=== PATIENT | male | born 1940 | race Caucasian/White ===

== ENCOUNTER 2016-06-21 15:25 | Emergency (ER) | payer MEDICARE ==
[2015-07-09 16:18] VITALS: BMI 27.6
[~2016-06-21 15:25] MED LIST: ASPIRIN EC81 M1 PO; LISINOPRIL10 MG PO
== END 2016-06-21 21:03 | disposition home or self-care (01) ==
LOC: D.ER 15:25
DX: M54.12 Radiculopathy, cervical region (principal); M19.90 Unspecified osteoarthritis, unspecified site; I10 Essential (primary) hypertension; Z86.73 Personal history of transient ischemic attack (TIA), and cerebral infarction without residual deficits

== ENCOUNTER 2017-05-09 05:20 | Emergency (ER) | payer MEDICARE ==
[2015-07-09 16:18] VITALS: BMI 27.6
[2017-05-09 05:54] LABS: BASOPHILS 0.2 % (0-2); EOSINOPHILS 0.7 % (0-7); HEMOGLOBIN 14.7 g/dL (13.5-17.5); IMMATURE GRANULOCYTES 0.2 % (0-5); LYMPHOCYTES 18.8 % (15-50); MCH 30.9 pg (26.0-34.0); MCHC 33.4 g/dL (31.0-37.0); MCV 92.4 fL (80.0-100.0); MEAN PLATELET VOLUME 9.7 fL (7.4-10.4); MONOCYTES 8.8 % (2-11); NEUTROPHILS 71.3 % (40-80); RBC 4.76 10x6/uL (4.20-6.10); RDW 13.2 % (11.5-14.5); WBC 5.6 10x3/uL (4.8-10.8)
[2017-05-09 05:59] LABS: PLATELET COUNT 135 10x3/uL (130-400)
[2017-05-09 06:11] LABS: ALBUMIN 3.9 g/dL (3.4-5.0); ANION GAP 13.7 mmol/L (8-16); BILIRUBIN - TOTAL 0.6 mg/dL (0.2-1.3); CALCIUM 8.8 mg/dL (8.5-10.1); CREATININE - SERUM 1.2 mg/dL (0.6-1.3); POTASSIUM - SERUM 3.7 mmol/L (3.5-5.1); PROTEIN - SERUM 7.1 g/dL (6.4-8.2)
== END 2017-05-09 06:55 | disposition home or self-care (01) ==
LOC: D.ER 05:20
PROVIDERS: Family Medicine
DX: J11.1 Influenza due to unidentified influenza virus with other respiratory manifestations (principal); I10 Essential (primary) hypertension; Z86.73 Personal history of transient ischemic attack (TIA), and cerebral infarction without residual deficits

== ENCOUNTER 2017-05-29 08:35 | Emergency (ER) | payer MEDICARE ==
[2015-07-09 16:18] VITALS: BMI 27.6
[2017-05-29 09:00] LABS: BASOPHILS 0.1 % (0-2); EOSINOPHILS 0.7 % (0-7); HEMATOCRIT 43.7 % (42.0-54.0); HEMOGLOBIN 14.9 g/dL (13.5-17.5); LYMPHOCYTES 6.7 % (15-50); MCH 31.2 pg (26.0-34.0); MCHC 34.1 g/dL (31.0-37.0); MCV 91.4 fL (80.0-100.0); MEAN PLATELET VOLUME 10.3 fL (7.4-10.4); MONOCYTES 6.6 % (2-11); NEUTROPHILS 85.9 % (40-80); PLATELET COUNT 161 10x3/uL (130-400); RBC 4.78 10x6/uL (4.20-6.10); RDW 13.2 % (11.5-14.5); WBC 7.5 10x3/uL (4.8-10.8)
[2017-05-29 09:15] LABS: ALBUMIN 4.1 g/dL (3.4-5.0); ALKALINE PHOSPHATASE 72 U/L (46-116); ALT (SGPT) 29 U/L (10-68); CALC OSMOLALITY 278 mosm/kg (275-300); CARBON DIOXIDE 27.6 mmol/L (21.0-32.0); CHLORIDE - SERUM 102 mmol/L (98-107); POTASSIUM - SERUM 4.2 mmol/L (3.5-5.1); PROTEIN - SERUM 7.2 g/dL (6.4-8.2); SODIUM 137 mmol/L (136-145); UREA NITROGEN 20 mg/dL (7-18); eGFR NON AFRICAN AMERICAN 77 mL/min (90-120)
[2017-05-29 09:16] LABS: GLUCOSE 143 mg/dL (74-106)
[2017-05-29 09:18] LABS: CREATINE KINASE 125 UL (21-232); TROPONIN-I < 0.017 ng/mL (0.000-0.060)
== END 2017-05-29 10:40 | disposition home or self-care (01) ==
LOC: D.ER 08:35
PROVIDERS: Emergency Medicine
DX: I95.9 Hypotension, unspecified (principal); R55 Syncope and collapse; E86.0 Dehydration; Z86.73 Personal history of transient ischemic attack (TIA), and cerebral infarction without residual deficits

== ENCOUNTER → 2017-09-29 12:59 | Outpatient (CLI) | payer MEDICARE ==
[2015-07-09 16:18] VITALS: BMI 27.6
[~2017-09-29 12:59] MED LIST changes: +LIPITOR40 MG PO; +PLAVIX75 MG PO
== END | disposition home or self-care (01) ==
LOC: D.US 12:59
DX: M19.90 Unspecified osteoarthritis, unspecified site (principal); I49.9 Cardiac arrhythmia, unspecified; I63.9 Cerebral infarction, unspecified; R07.9 Chest pain, unspecified; R00.2 Palpitations; R55 Syncope and collapse; R40.0 Somnolence; R06.83 Snoring; R53.83 Other fatigue

== ENCOUNTER 2017-10-13 06:37 | Outpatient (CLI) | payer MEDICARE ==
[~2017-10-13] VITALS: Ht 177.8 cm; Wt 82.7 kg
--- NOTE | ~2017-10-13 | HEMODYNAMI ---
PATIENT:VIDYA NATONY MEDICAL RECORD: [id number] : 44 LOCATION:[facility] ADMISSION DATE: 10/13/17 Generatedon:10/13/201710:48 Patient name: VIDYA ANTONY Patient #: [id number] SSN: : 1940 Date of study: 10/13/2017 Page: Of Hemodynamic Procedure Report Patient Data Patient Demographics Procedure consent was obtained First Name: VIDYA Gender: Male Last Name: CASSIA : 1940 Middle Initial: C Age: 77 year(s) Patient #: [id number] Race: Unknown Additional ID: [id number] Contact details Address: [address] [place] [address] State: [place] City: [facility] Zip code: [address] Past Medical History Allergies: No known allergies Admission Admission Data Admission Date: 10/13/2017 Admission Time: 6:37 Procedure Procedure Types Cath Procedure Diagnostic Procedure LHC LH w/Coronaries Sedation Charges Moderate Sedation up to 15 minutes PCI Procedure Coronary Stent Coronary Stent Initial Procedure Description Procedure Date Procedure Date: 10/13/2017 Procedure Start Time: 10:23 Procedure End Time: 10:48 Procedure Staff Name Function Jorgito Springer MD Performing Physician Marietta Gale RT Monitor Cody Moya RN Nurse Alpa Ohara RT Scrub Procedure Data Cath Procedure Fluoroscopy Diagnostic fluoroscopy Total fluoroscopy Time: 5.6 time: 5.6 min min Diagnostic fluoroscopy Total fluoroscopy dose: dose: 1666 mGy 1666 mGy Contrast Material Contrast Material Type Amount (ml) Isovue 370 80 Entry Location Entry Primary Successful Side Size Upsize Upsize Entry Closure Morrissey ccessful Closure Location (Fr) 1 (Fr) 2 (Fr) Remarks Device Remarks Radial Right 6 Fr Mechanical artery Short Compression Estimated blood loss: 10 ml Diagnostic catheters Device Type Used For End Catheter Placement DIAGNOSTIC Jon 110cm LV Angiography 5Fr catheter ([id number]) DIAGNOSTIC Jon 110cm Left Coronary 5Fr catheter ([id number]) Angiography DIAGNOSTIC Jon 110cm Right Coronary 5Fr catheter ([id number]) Angiography Procedure Complications No complications Procedure Medications Medication Administration Route Dosage 0.9% NaCl I.V. 100 ml/hr Oxygen etCO2 Nasal cannula 2 l/min Heparin Flush Bag added to field 2 bags (1000units/500ml NS) Lidocaine 2% added to field 20 Radial Cocktail added to field 1 syringe (Verapomil 2mg/Nitro 400mcg/Heparin 1500units) Versed I.V. 1 mg Fentanyl I.V. 50 mcg Radial Cocktail I.A. 1 syringe (Verapomil 2mg/Nitro 400mcg/Heparin 1500units) Angiomax (bolus) I.V. 13 ml Angiomax Drip I.V. drip 30 ml/hr (250mg/50ml NS) (Standard) Angiomax Drip I.V. drip 30 ml/hr (250mg/50ml NS) (Standard) Hemodynamics Rest Heart Rate: 50 (bpm) Pressure Samples Time Site Value (mmHg) Purpose Heart Use Rate(bpm) 10:26 LV 5/-3,3 EDP 112 Gradients Valve Time Site Site Mean SEP/DFP Peak To Heart Use 1 2 (mmHg) (sec/min) Peak Rate (mmHg) (bpm) Aortic 10:26 LV AO 59 Snapshots Pre Cath Intra NCS Post Cath Vital Signs Time Heart Resp SPO2 etCO2 NIBP (mmHg) Rhythm Pain Sedation Rate (ipm) (%) (mmHg) Status Level (bpm) 10:12:08 49 11 97 34.5 112/63(77) NSR 0 (11) 10(A) , No pain 10:16:14 49 19 94 0 114/58(91) NSR 0 (11) 10(A) , No pain 10:20:26 48 19 94 0 119/61(77) NSR 0 (11) 10(A) , No pain 10:24:40 47 12 95 12 103/58(81) NSR 0 (11) 9(A) , No pain 10:28:56 54 19 95 31.5 99/51(76) NSR 0 (11) 10(A) , No pain 10:33:04 51 19 96 12.7 97/51(76) NSR 0 (11) 10(A) , No pain 10:37:22 50 14 96 34.5 108/53(71) NSR 0 (11) 10(A) , No pain 10:41:23 52 12 97 24 102/62(78) NSR 0 (11) 10(A) , No pain 10:45:29 54 11 98 38.3 116/66(100) NSR 0 (11) 10(A) , No pain Medications Time Medication Route Dose Verified Delivered Reason Not es Effectiveness by by 10:12:00 0.9% NaCl I.V. 100 Cody Cody Per physician ml/hr Griffin Moya RN RN 10:12:11 Oxygen etCO2 2 l/min Cody Cody Per physician Nasal Megganigan Griffin cannula RN RN 10:12:22 Heparin Flush added 2 bags Cody Cody used for Bag to Lorigan Griffin procedure (1000units/500ml field RN RN NS) 10:12:33 Lidocaine 2% added 20ml Cody Cody for local to vial Lorigan Lorigan anesthetic field RN RN 10:12:43 Radial Cocktail added 1 Cody Cody used for (Verapomil to syringe Lorigan Lorigan procedure 2mg/Nitro field RN RN 400mcg/Heparin 1500units) 10:13:51 Versed I.V. 1 mg Cody Cody for sedation Griffin Moya RN RN 10:13:59 Fentanyl I.V. 50 mcg Cody Cody for sedation Griffin Moya RN RN 10:25:24 Radial Cocktail I.A. 1 Cody Jorgito for (Verapomil syringe Griffin Norpedro MD vasodilation 2mg/Nitro RN 400mcg/Heparin 1500units) 10:37:48 Angiomax (bolus) I.V. 13 ml Cody Cody for Lorigan Lorigan anticoagulation RN RN 10:38:00 Angiomax Drip I.V. 30 Cody Cody for (250mg/50ml NS) drip ml/hr Lorigan Lorigan anticoagulation (Standard) RN RN 10:47:30 Angiomax Drip I.V. 30 Cody Cody to sharp's (250mg/50ml NS) drip ml/hr Lorigan Lorigan (Standard) RN head athletic trainer Log Time Note 9:54:20 Time tracking: Regular hours (M-F 7:00 - 5:00) 9:54:23 Plan of Care:Hemodynamics will remain stable., Cardiac rhythm will remain stable., Comfort level will be maintained., Respiratory function will remain adequate., Patient/ family verbilizes understanding of procedure., Procedure tolerated without complication., Recovers from procedure without complications.. 9:54:26 Alpa Ohara RT(R) sent for patient. Start room use. 9:55:53 H&P Date Dictated: 10/11/2017 Within 30 days and on chart., H&P Addendum completed by physician on day of procedure. (MUST COMPLETE FOR ALL OUTPATIENTS). 10:00:06 Patient received from Pre/Post Procedure Room to CCL 2 Alert and oriented. Tansferred to table in Supine position. 10:00:07 Warm blankets applied, and sherita hugger turned on for patient comfort. 10:00:08 Correct patient and procedure confirmed by team. 10:00:09 Signed procedure consent form obtained from patient. 10:00:09 ECG and BP/O2 sat monitors applied to patient. 10:00:10 Full Disclosure recording started 10:11:02 Vital chart was started 10:11:08 Rhythm: sinus bradycardia 10:11:11 Pre-procedure instructions explained to patient. 10:11:11 Pre-op teaching completed and patient verbalized understanding. 10:11:14 Family in patients room. 10:11:15 Patient NPO since Midnight. 10:11:27 Patient allergic to No known allergies 10:11:29 Is the patient allergic to Iodine/contrast media? No. 10:11:31 Is patient on blood thinner?Yes 10:11:33 ACC The patient was administered the following blood thiners within the last 24 hours: ACCAspirin, ACCPlavix 10:11:35 Patient diabetic? No. 10:11:38 Previous problem with sedation/anesthesia? No ? 10:11:39 Snore? Yes 10:11:40 Sleep apnea? No 10:11:41 Deviated septum? No 10:11:42 Opens mouth fully? Yes 10:11:43 Sticks out tongue? Yes 10:11:44 Airway obstruction? No ? 10:11:46 Dentures? No ? 10:11:48 Pre procedure: right dorsailis pedis pulse 2+ Normal; easily identifiable; not easily obliterated 10:11:50 Modified Dashawn's test Ulnar < 7 seconds 10:11:52 Patient pain scale 0/10 ?. 10:11:56 IV patent on arrival in left forearm with 0.9% NaCl at [facility]. 10:11:58 Lab results completed and on chart. 10:12:00 0.9% NaCl 100 ml/hr I.V. was administered by Cody Moya RN; Per physician; 10:12:02 Right Radial & Right Groin area was prepped with chlora-prep and draped in sterile fashion 10:12:03 Alarms reviewed by R. N. 10:12:03 Sharps counted by scrub and verified by R.N. 10:12:06 Use device set Radial Dx or PCI 10:12:07 ACIST Syringe (12247) opened to sterile field. 10:12:07 Medline Cath Pack ([id number]) opened to sterile field. 10:12:07 Bag Decanter (2002S) opened to sterile field. 10:12:08 DIAGNOSTIC WIRE .035 260cm J wire (987240) opened to sterile field. 10:12:08 ACIST Hand Control (05809) opened to sterile field. 10:12:09 ACIST Manifold (86071) opened to sterile field. 10:12:09 Tegaderm 4 x 4 (1626W) opened to sterile field. 10:12:10 MBrace Wrist Support ([id number]) opened to sterile field. 10:12:11 Oxygen 2 l/min etCO2 Nasal cannula was administered by Cdoy Moya RN; Per physician; 10:12:13 SHEATH 6Fr Prelude Radial ([id number]) opened to sterile field. 10:12:22 Heparin Flush Bag (1000units/500ml NS) 2 bags added to field was administered by Cody Moya RN; used for procedure; 10:12:33 Lidocaine 2% 20ml vial added to field was administered by Cody Moya RN; for local anesthetic; 10:12:43 Radial Cocktail (Verapomil 2mg/Nitro 400mcg/Heparin 1500units) 1 syringe added to field was administered by Cody Moya RN; used for procedure; 10:13:18 Final Timeout: patient, procedure, and site verified with staff and physician. All members of the team are in agreement. 10:13:20 Right Radial site verified by team. 10:13:22 Physical assessment completed. ASA score P 2 - A patient with mild systemic disease as per Jorgito Springer MD. 10:13:26 Sedation plan: IV Moderate Sedation Medication:Versed, Fentanyl 10::51 Versed 1 mg I.V. was administered by Cody Moya RN; for sedation; 10::59 Fentanyl 50 mcg I.V. was administered by Cody Moya RN; for sedation; 10:15:00 Zero performed for pressure channel P1 10:15:09 Baseline sample Acquired. 10:23:43 Procedure started. 10:23:48 Local anesthetic to right radial artery with Lidocaine 2% by Jorgito Springer MD.INITIAL ACCESS ONLY 10:25:13 A 6 Fr Short sheath was inserted into the Right Radial artery 10:25:24 Radial Cocktail (Verapomil 2mg/Nitro 400mcg/Heparin 1500units) 1 syringe I.A. was administered by Jorgito Springer MD; for vasodilation; 10:26:49 A DIAGNOSTIC Jon 110cm 5Fr catheter (287866) was advanced over the wire and used for LV Angiography. 10:26:53 LV gram done using KONG 10::54 LV hemodynamics recorded. 10::57 Injector settings: Ml/sec: 12, Volume: 8, 10:26:58 Catheter removed. 10:27:24 A DIAGNOSTIC Jon 110cm 5Fr catheter (147731) was advanced over the wire and used for Left Coronary Angiography. 10:27:59 A DIAGNOSTIC Jon 110cm 5Fr catheter (708258) was advanced over the wire and used for Right Coronary Angiography. 10:30:38 Catheter removed. 10:30:46 Use device set NORRED PCI 10:30:53 COPILOT Valve Control (3714261) opened to sterile field. 10:30:54 INFLATOR Merit BasixCompak (ZE6996) opened to sterile field. 10:30:56 BMW 190cm [place] 2 J wire ([id number]) opened to sterile field. 10:31:00 GUIDE 6FR EBU 3.5 catheter ([id number]) opened to sterile field. 10:31:20 Proceeding to intervention. 10:35:47 6 Fr EBU 3.5 guide catheter was inserted over the wire 10:37:48 Angiomax (bolus) 13 ml I.V. was administered by Cody Lorigan RN; for anticoagulation; 10:37:49 BMW wire advanced. 10:38:00 Angiomax Drip (250mg/50ml NS) (Standard) 30 ml/hr I.V. drip was administered by Cody Moya RN; for anticoagulation; 10:43:31 Place stent Inflation Number: 1 A NABOR RX 2.0 x 15 stent ([id number]) was prepped and advanced across the 1st Diag. The stent was deployed at 13 JOHNSON for 0:17 (min:sec). 10:44:24 Stent catheter was removed intact over wire. 10:44:26 Wire removed. 10:44:42 Guide catheter removed. 10:44:54 Sheath removed intact; hemostasis achieved with Mechanical Compression to the Right Radial artery. 10:44:57 Procedure ended.(Physican Out) 10:45:24 Fluoroscopy time 05.60 minutes. 10:45:28 Flurop Dose total: 1666 10:45:28 Fluoroscopy dose: 1666 mGy 10:45:32 Contrast amount:Isovue 370 80ml. 10:45:33 Sharps counted by scrub and verified by R.N. 10:45:34 Insertion/operative site no bleeding no hematoma. 10:45:42 Post right radial artery:stable, clean and dry 10:45:43 Post Procedure Pulses reassessed and unchanged 10:45:45 Post-procedure physical assessment completed. ASA score P 2 - A patient with mild systemic disease as per Jorgito Springer MD. 10:45:47 Post procedure rhythm: unchanged. 10:45:51 Estimated blood loss: 10 ml 10:45:52 Post procedure instruction explained to patient.Patient verbalizes understanding. 10:45:52 Patient needs reinforcement of post procedure teaching. 10:46:40 Procedure type changed to Cath procedure, Diagnostic procedure, LHC, LHC w/Coronaries, Sedation Charges, Moderate Sedation up to 15 minutes, PCI procedure, Coronary Stent, Coronary Stent Initial 10:46:49 TR BAND Standard ([id number]) opened to sterile field. 10:47:30 Angiomax Drip (250mg/50ml NS) (Standard) 30 ml/hr I.V. drip was administered by Cody Moya RN; to sharp's; 10:48:11 Procedure Complication : No complications 10:48:14 See physician's report for complete and final results. 10:48:17 Procedure and supply charges have been captured, reviewed, submitted and are correct. 10:48:18 Vital chart was stopped 10:48:20 Report given to Pre/Post Procedure Room. 10:48:24 Patient transfered to Pre/Post Procedure Room with Stretcher. 10:48:32 Procedure ended. 10:48:32 Full Disclosure recording stopped 10:48:37 End room use (Document Last) Intervention Summary Intervention Notes Time ActionType Lesion and Equipment Used Action# Pressure Duration Attributes 10:43:31 Place stent 1st Diag NABOR RX 2.0 x 1 13 00:17 15 stent ([id number]) Device Usage Item Name Manufacture Quantity Catalog Number Hospital Part Current Minimal Lot# / Charge Number Stock Stock Serial# Code ACIST Syringe Acist 1 51923 921887 802692 044329 20 (48053) Medical Systems Inc Medline Cath Cardinal 1 [id number] 615642 88352 090073 5 Urvew ([id number]) Bag Decanter Microtek 1 2001S 129338 24745 109718 5 (2001S) Medical Inc. DIAGNOSTIC WIRE St Zane 1 804825 146257 773845 362536 30 .035 260cm J wire (283962) ACIST Hand Acist 1 46640 004814 554001 305245 5 Control (81239) [employer] Inc ACIST Manifold Acist 1 40128 462493 949908 242818 5 (38522) Medical Systems Inc Tegaderm 4 x 4 3M 1 1626W 644822 453759 107962 5 (1626W) MBrace Wrist Advanced 1 140-0250-00 600018 25309 950443 5 Support Vascular ([id number]) Dynamics SHEATH 6Fr Merit 1 [id number] 910190 853415 292445 5 Prelude Radial Medical ([id number]) DIAGNOSTIC Terumo 1 40-3774 549624 861265 885321 5 Jon 110cm 5Fr catheter (771323) COPILOT Valve Singh 1 1071162 722021 916609 909907 5 Control Vascular (1561077) INFLATOR Merit Merit 1 RF3190 408576 313772 037017 15 BasixCompak Medical (UM7402) BMW 190cm Singh 1 [id number] 689389 60185 345277 5 [place] 2 J Vascular wire ([id number]) GUIDE 6FR EBU Medtronic 1 [id number] 286191 84913 768886 3 3.5 catheter ([id number]) NABOR RX 2.0 x Medtronic 1 [id number] 604335 2652920 375730 5 [id number] 15 stent ([id number]) TR BAND Terumo 1 [id number] 330616 656883 178769 40 Standard ([id number]) Signature Audit [place] Stage Time Signature Unsigned Intra-Procedure 10/13/2017 [place] 10:48:50 AM Counts RT(R) Signatures Monitor : Marietta Signature : Counts RT Date : Time : [place] [id number] [place] [address]
[~2017-10-13 06:37] MED LIST changes: -LIPITOR40 MG PO; -PLAVIX75 MG PO
[2017-10-13 07:24] VITALS: BP 144/87; Ht 177.8 cm; Wt 82.7 kg
[2017-10-13 07:34] LABS: BASOPHILS 0.6 % (0-2); EOSINOPHILS 6.9 % (0-7); HEMATOCRIT 43.8 % (42.0-54.0); HEMOGLOBIN 14.9 g/dL (13.5-17.5); LYMPHOCYTES 38.9 % (15-50); MCH 31.3 pg (26.0-34.0); MONOCYTES 10.4 % (2-11); NEUTROPHILS 43.2 % (40-80); PLATELET COUNT 168 10x3/uL (130-400); RBC 4.76 10x6/uL (4.20-6.10); RDW 13.5 % (11.5-14.5); WBC 4.8 10x3/uL (4.8-10.8)
[2017-10-13 07:42] LABS: CALC OSMOLALITY 286 mosm/kg (275-300); CALCIUM 8.7 mg/dL (8.5-10.1); CARBON DIOXIDE 28.8 mmol/L (21.0-32.0); CHLORIDE - SERUM 106 mmol/L (98-107); CREATININE - SERUM 0.8 mg/dL (0.6-1.3); GLUCOSE 109 mg/dL (74-106); POTASSIUM - SERUM 3.8 mmol/L (3.5-5.1); SODIUM 143 mmol/L (136-145); UREA NITROGEN 16 mg/dL (7-18); eGFR NON AFRICAN AMERICAN > 90 mL/min (90-120)
[2017-10-13] MEDS ORDERED: PLAVIX75 MG PO (10:56)
[2017-10-13] MEDS ORDERED: LIPITOR40 MG PO (10:57)
== END 2017-10-13 15:00 | disposition home or self-care (01) ==
LOC: D.CATH 06:37
PROVIDERS: Internal Medicine Cardiovascular Disease
DX: I25.119 Atherosclerotic heart disease of native coronary artery with unspecified angina pectoris (principal); Z01.812 Encounter for preprocedural laboratory examination
CPT/HCPCS: 93458; C9600

== ENCOUNTER → 2017-11-01 17:47 | Outpatient (CLI) | payer MEDICARE ==
[2017-10-13 07:24] VITALS: BMI 26.1
[~2017-11-01 17:47] MED LIST changes: +LIPITOR40 MG PO; +PLAVIX75 MG PO
[2017-11-01 18:56] LABS: CHOL - HDL RATIO 3.7 ratio (2.3-4.9); LDL-HDL RATIO 2.2 ratio (1.5-3.5)
== END | disposition home or self-care (01) ==
LOC: D.LABREF 17:47
PROVIDERS: Internal Medicine Cardiovascular Disease
DX: E78.5 Hyperlipidemia, unspecified (principal)

== ENCOUNTER → 2017-12-26 18:19 | Outpatient (CLI) | payer MEDICARE ==
[2017-10-13 07:24] VITALS: BMI 26.1
[2017-12-26 18:34] LABS: BASOPHILS 0.3 % (0-2); EOSINOPHILS 5.9 % (0-7); HEMATOCRIT 45.2 % (42.0-54.0); HEMOGLOBIN 15.3 g/dL (13.5-17.5); IMMATURE GRANULOCYTES 0.2 % (0-5); LYMPHOCYTES 32.4 % (15-50); MCH 31.2 pg (26.0-34.0); MCHC 33.8 g/dL (31.0-37.0); MCV 92.1 fL (80.0-100.0); MEAN PLATELET VOLUME 10.5 fL (7.4-10.4); NEUTROPHILS 50.2 % (40-80); PLATELET COUNT 185 10x3/uL (130-400); RBC 4.91 10x6/uL (4.20-6.10); RDW 13.1 % (11.5-14.5); WBC 5.9 10x3/uL (4.8-10.8)
[2017-12-26 19:33] LABS: ERYTHROCYTE SEDIMENTATION RATE 2 mm/hr (0-20)
[2017-12-26 20:22] LABS: ALBUMIN 4.1 g/dL (3.4-5.0); ALKALINE PHOSPHATASE 69 U/L (46-116); ALT (SGPT) 70 U/L (10-68); BILIRUBIN - TOTAL 0.66 mg/dL (0.2-1.3); CALC OSMOLALITY 285 mosm/kg (275-300); CARBON DIOXIDE 29.7 mmol/L (21.0-32.0); CHLORIDE - SERUM 104 mmol/L (98-107); CREATINE KINASE 146 UL (21-232); CREATININE - SERUM 0.9 mg/dL (0.6-1.3); GLUCOSE 131 mg/dL (74-106); POTASSIUM - SERUM 4.6 mmol/L (3.5-5.1); PROTEIN - SERUM 7.2 g/dL (6.4-8.2); SODIUM 142 mmol/L (136-145); UREA NITROGEN 16 mg/dL (7-18); eGFR NON AFRICAN AMERICAN 87 mL/min (90-120)
== END | disposition home or self-care (01) ==
LOC: D.LABREF 18:19
PROVIDERS: Internal Medicine Cardiovascular Disease
DX: R53.83 Other fatigue (principal)

== ENCOUNTER → 2018-01-13 09:14 | Outpatient (CLI) | payer MEDICARE ==
[2017-10-13 07:24] VITALS: BMI 26.1
== END | disposition home or self-care (01) ==
LOC: D.RT 09:00
DX: I49.9 Cardiac arrhythmia, unspecified (principal); I50.9 Heart failure, unspecified; I25.10 Atherosclerotic heart disease of native coronary artery without angina pectoris; R06.02 Shortness of breath; R53.83 Other fatigue

== ENCOUNTER 2018-07-23 08:16 | Observation (INO) | payer MEDICARE ==
[2018-07-23] VITALS (8 sets, daily range): BP systolic 99–123; BP diastolic 53–66; Ht 177.8 cm; Wt 87.8 kg
[~2018-07-23] VITALS: Ht 177.8 cm; Wt 87.8 kg
--- NOTE | ~2018-07-23 | HEMODYNAMI ---
PATIENT:VIDYA ANTONY MEDICAL RECORD: [id number] : 44 LOCATION[facility] [id number] ADMISSION DATE: 07/23/18 Generatedon:07/24/201816:26 Patient name: VIDYA ANTONY Patient #: [id number] SSN: : 1940 Date of study: 07/24/2018 Page: Of Hemodynamic Procedure Report Patient Data Patient Demographics Procedure consent was obtained First Name: VIDYA Gender: Male Last Name: CASSIA : 1940 [facility] Initial: C Age: 78 year(s) Patient #: [id number] Race: Unknown Additional ID: [id number] Contact details Address: [address] [place] [address] State: [place] City: [facility] Zip code: [address] Past Medical History Allergies: No known allergies Admission Admission Data Admission Date: 07/23/2018 Admission Time: 10:59 Room #: D.2125 Lab Results Lab Result Date: 07/24/2018 Lab Result Time: 0:00 Biochemistry Name Units Result Min Max BUN mg/dl 21 --(----)-* 7 18 Creatinine mg/dl 1 --(--*-)-- 0.6 1.3 CBC Name Units Result Min Max Hematocrit % 39.3 -*(----)-- 42 54 Hemoglobin g/dl 12.7 -*(----)-- 13.5 17.5 Procedure Procedure Types Cath Procedure Diagnostic Procedure LHC LHC w/Coronaries Sedation Charges Moderate Sedation up to 15 minutes PCI Procedure Coronary Stent Coronary Stent Initial x2 Peripheral Cath Diagnostic Procedure Photo Tube Assembler Peripheral Procedures Four Vessel Arteriogram Procedure Description Procedure Date Procedure Date: 07/24/2018 Procedure Start Time: 15:54 Procedure End Time: 16:19 Procedure Staff Name Function Andrea Jeronimo MD Performing Physician Alpa Ohara RT Monitor Matthew Colunga RT Scrub Pauline Peña RN Nurse Cristobal Edwards RN Senior Examiner Procedure Data Cath Procedure Fluoroscopy Diagnostic fluoroscopy Total fluoroscopy Time: 7.4 time: 7.4 min min Diagnostic fluoroscopy Total fluoroscopy dose: dose: 1173 mGy 1173 mGy Contrast Material Contrast Material Type Amount (ml) Isovue 300 160 Entry Location Entry Primary Successful Side Size Upsize Upsize Entry Closure Succes sful Closure Location (Fr) 1 (Fr) 2 (Fr) Remarks Device Remarks Femoral Right 6 Fr Exoseal artery Short Estimated blood loss: 10 ml Diagnostic catheters Device Type Used For End Catheter Placement MULTIPACK Pigtail 5 Fr Procedure catheter MULTIPACK JL 4.0 5Fr Procedure catheter MULTIPACK 3DRC 5Fr Procedure catheter Procedure Complications No complications Procedure Medications Medication Administration Route Dosage Oxygen etCO2 Nasal cannula 2 l/min Lidocaine 2% added to field 20 Heparin Flush Bag added to field 2 bags (1000units/500ml NS) 0.9% NaCl I.V. 100 ml/hr Versed I.V. 1 mg Fentanyl I.V. 50 mcg Versed I.V. 1 mg Fentanyl I.V. 50 mcg Heparin Bolus I.V. 4000 units Integrilin (Bolus I.V. 7.9 ml 2mg/ml) Plavix P.O. 600 mg Versed I.V. 0.5 mg Fentanyl I.V. 25 mcg Hemodynamics Rest HGB: 12.7 (g/dl) Heart Rate: 61 (bpm) Snapshots Pre Cath Intra NCS Post Cath Vital Signs Time Heart Resp SPO2 etCO2 NIBP Rhythm Pain Sedation Rate (ipm) (%) (mmHg) (mmHg) Status Level (bpm) 15:36:49 59 18 98 0 111/65(91) NSR 0 (11) 10(A) , No pain 15:41:01 60 15 94 0 107/63(87) NSR 0 (11) 10(A) , No pain 15:45:01 63 11 96 0 108/73(92) NSR 0 (11) 10(A) , No pain 15:49:09 61 14 98 13.6 124/72(91) NSR 0 (11) 10(A) , No pain 15:53:21 59 14 98 18.1 109/65(86) NSR 0 (11) 9(A) , No pain 15:57:32 57 19 98 0 106/64(84) NSR 0 (11) 9(A) , No pain 16:01:40 59 19 98 0 116/70(79) NSR 0 (11) 9(A) , No pain 16:05:52 59 13 98 15.1 103/60(79) NSR 0 (11) 9(A) , No pain 16:10:04 60 14 98 5.3 103/55(81) NSR 0 (11) 9(A) , No pain 16:14:14 57 15 98 22.7 104/58(87) NSR 0 (11) 9(A) , No pain 16:18:24 60 14 98 3.7 105/57(75) NSR 0 (11) 10(A) , No pain Medications Time Medication Route Dose Verified Delivered Reason Notes Effectiveness by by 15:34:14 Oxygen etCO2 2 Andrea Buffie used for Nasal l/min Phani Peña RN procedure cannula 15:34:22 Lidocaine 2% added 20ml Andreahuma Mendez for local to vial Phani Jeronimo MD anesthetic field 15:34:28 Heparin Flush added 2 Andrea Andrea used for Bag to bags Phani Jeronimo MD procedure (1000units/500ml field NS) 15:34:37 0.9% NaCl I.V. 100 Andrea Carpenter Per physician ml/hr Phani Peña RN 15:50:54 Versed I.V. 1 mg Andrea Carpenter for sedation Phani Peña RN 15:51:00 Fentanyl I.V. 50 Andrea Buffie for sedation mcg Phani Peña RN 15:57:51 Versed I.V. 1 mg Andrea Bragaie for sedation Phani Peña RN 15:57:55 Fentanyl I.V. 50 Andrea Bragaie for sedation mcg Phani Peña RN 16:01:56 Heparin Bolus I.V. 4000 Andrea Carpenter for verif ied units Phani Peña RN anticoagulation with dr jeronimo 16:05:17 Integrilin I.V. 7.9 Andrea Carpenter for Waste d (Bolus 2mg/ml) ml Phani Peña RN antiplatelet 2.1 ml therapy of vial 16:10:11 Versed I.V. 0.5 Andrea Bragaie for sedation mg Phani Peña RN 16:10:15 Fentanyl I.V. 25 Andrea Carpenter for sedation mcg Phani Peña RN 16:20:43 Plavix P.O. 600 Andrea Carpenter for mg Phani Peña RN antiplatelet therapy Procedure Log Time Note 14:56:18 Signed procedure consent form obtained from patient. 14:56:19 Diagnostic Cath status Elective 14:56:20 Time tracking: Regular hours (M-F 7:00 - 5:00) 14:56:24 Plan of Care:Hemodynamics will remain stable., Cardiac rhythm will remain stable., Comfort level will be maintained., Respiratory function will remain adequate., Patient/ family verbilizes understanding of procedure., Procedure tolerated without complication., Recovers from procedure without complications.. 14:57:56 Patient allergic to No known allergies 14:58:48 Lab Result : Creatinine 1 mg/dl 14:58:48 Lab Result : BUN 21 mg/dl 14:58:48 Lab Result : Hemoglobin 12.7 g/dl 14:58:48 Lab Result : Hematocrit 39.3 % 15:11:41 Alpa Ohara RT(R) sent for patient. Start room use. 15:26:29 Patient received from Med II to CCL 1 Alert and oriented. Tansferred to table in Supine position. 15:26:30 Warm blankets applied, and sherita hugger turned on for patient comfort. 15:26:30 Correct patient and procedure confirmed by team. 15:26:31 ECG and BP/O2 sat monitors applied to patient. 15:26:39 H&P Date Dictated: 07/23/2018 Within 30 days and on chart.. 15:26:41 Pre-procedure instructions explained to patient. 15:26:41 Pre-op teaching completed and patient verbalized understanding. 15:26:42 Family in waiting room. 15:26:43 Patient NPO since Midnight. 15:26:53 Patient allergic to No known allergies 15:26:55 Is the patient allergic to Iodine/contrast media? No. 15:34:14 Oxygen 2 l/min etCO2 Nasal cannula was administered by Pauline Peña RN; used for procedure; 15:34:22 Lidocaine 2% 20ml vial added to field was administered by Andrea Jeronimo MD; for local anesthetic; 15:34:28 Heparin Flush Bag (1000units/500ml NS) 2 bags added to field was administered by Andrea Jeronimo MD; used for procedure; 15:34:37 0.9% NaCl 100 ml/hr I.V. was administered by Buffie Peña RN; Per physician; 15:35:43 Vital chart was started 15:35:47 Baseline sample Acquired. 15:35:51 Rhythm: sinus rhythm 15:35:52 Full Disclosure recording started 15:35:56 Is patient on blood thinner?No 15:35:57 Patient diabetic? No. 15:36:01 Previous problem with sedation/anesthesia? No ? 15:36:02 Snore? Yes 15:36:03 Sleep apnea? No 15:36:04 Deviated septum? No 15:36:04 Opens mouth fully? Yes 15:36:05 Sticks out tongue? Yes 15:36:08 Airway obstruction? No ? 15:36:09 Dentures? No ? 15:37:52 Pre procedure: right dorsailis pedis pulse 2+ Normal; easily identifiable; not easily obliterated 15:37:54 Pre procedure: left dorsailis pedis pulse 2+ Normal; easily identifiable; not easily obliterated 15:37:57 Patient pain scale 0/10 ?. 15:38:06 IV patent on arrival in left forearm with 0.9% NaCl at [facility]. 15:38:09 Lab results completed and on chart. 15:38:12 Right groin area was prepped with chlora-prep and draped in sterile fashion 15:38:12 Alarms reviewed by R. N. 15:38:13 Sharps counted by scrub and verified by R.N. 15:38:24 Procedure type changed to Cath procedure, Diagnostic procedure, LHC, LHC w/Coronaries, Sedation Charges, Moderate Sedation up to 15 minutes, PCI procedure, Coronary Stent, Coronary Stent Initial x2, Peripheral Cath Diagnostic Procedure, Photo Tube Assembler Peripheral Procedures, Four Vessel Arteriogram 15:38:29 Use device set Femoral Dx 15:38:30 ACIST Syringe (45579) opened to sterile field. 15:38:31 Bag Decanter () opened to sterile field. 15:38:31 ACIST Hand Control (21223) opened to sterile field. 15:38:32 ACIST Manifold (02114) opened to sterile field. 15:38:33 Tegaderm 4 x 4 (1626W) opened to sterile field. 15:38:34 Medline Cath Pack ([id number]) opened to sterile field. 15:38:35 DIAGNOSTIC WIRE .035 260cm J wire (637024) opened to sterile field. 15:38:36 DIAGNOSTIC Multipack 5Fr catheter set (FT4700) opened to sterile field. 15:47:20 Zero performed for pressure channel P1 15:48:39 --------ALL STOP TIME OUT------ 15:48:39 Final Timeout: patient, procedure, and site verified with staff and physician. All members of the team are in agreement. 15:48:44 Right groin site verified by team. 15:48:47 Fire Safety Assessment: A--An alcohol-based skin anteseptic being used preoperatively., C--Open oxygen or nitrous oxide is being used., D--An ESU, laser, or fiber-optic light is being used. 15:48:51 Physical assessment completed. ASA score P 2 - A patient with mild systemic disease as per Andrea Jeronimo MD. 15:48:54 Sedation plan: IV Moderate Sedation Medication:Versed, Fentanyl 15:50:54 Versed 1 mg I.V. was administered by Pauline Peña RN; for sedation; 15:51:00 Fentanyl 50 mcg I.V. was administered by Pauline Peña RN; for sedation; 15:53:55 Zero performed for pressure channel P1 15:54:08 Procedure started. 15:54:13 Local anesthetic to right femoral artery with Lidocaine 2% by Andrea Jeronimo MD.INITIAL ACCESS ONLY 15:54:30 SHEATH 6FR [place] (KJN015) opened to sterile field. 15:54:55 A 6 Fr Short sheath was inserted into the Right Femoral artery 15:55:18 A MULTIPACK Pigtail 5 Fr catheter was advanced over the wire and used for Procedure. 15:56:11 LV gram done using KONG 15:56:20 Injector settings: Ml/sec: 10, Volume: 20, 15:56:26 EF : 55 % 15:56:28 Catheter removed. 15:56:33 A MULTIPACK JL 4.0 5Fr catheter was advanced over the wire and used for Procedure. 15:57:51 Versed 1 mg I.V. was administered by Pauline Peña RN; for sedation; 15:57:55 Fentanyl 50 mcg I.V. was administered by Pauline Peña RN; for sedation; 15:58:16 LCA angiography performed. 15:58:17 Catheter removed. 15:58:26 A MULTIPACK 3DRC 5Fr catheter was advanced over the wire and used for Procedure. 15:59:09 RCA angiography performed. 16:00:30 Right carotid angiography performed. 16:01:54 CHOICE PT Extra Support J 300cm guide wire ([id number]) opened to sterile field. 16:01:55 INFLATOR Merit BasixCompak (GA8045) opened to sterile field. 16:01:56 Heparin Bolus 4000 units I.V. was administered by Pauline Peña RN; for anticoagulation; verified with dr jeronimo 16:01:56 GUIDE 6FR XB 4.0 catheter ([id number]) opened to sterile field. 16:02:04 Left carotid angiography performed. 16:02:10 Catheter removed. 16:03:27 6 Fr XB 4 guide catheter was inserted over the wire 16:04:49 CHOICE 300 ES wire advanced. 16:05:17 Integrilin (Bolus 2mg/ml) 7.9 ml I.V. was administered by Pauline Peña RN; for antiplatelet therapy; Wasted 2.1 ml of vial 16:06:36 Place stent Inflation Number: 1 A INTEGRITY OTW 2.75 X 8 stent ([id number]) was prepped and advanced across the Mid CX. The stent was deployed at 13 JOHNSON for 0:10 (min:sec). 16:07:13 Stent catheter was removed intact over wire. 16:07:13 Wire removed. 16:07:15 Guide catheter removed. 16:07:40 GUIDE 6FR AR 2.0 SH catheter ([id number]) opened to sterile field. 16:10:11 Versed 0.5 mg I.V. was administered by Pauline Peña RN; for sedation; 16:10:15 Fentanyl 25 mcg I.V. was administered by Pauline Peña RN; for sedation; 16:10:29 6 Fr AR 2 SH guide catheter was inserted over the wire 16:10:37 CHOICE ES 300 wire advanced. 16:12:06 Wire advanced across lesion. 16:12:40 Place stent Inflation Number: 1 A NABOR OTW 2.25 x 08 stent ([id number]) was prepped and advanced across the Prox RCA. The stent was deployed at 11 JOHNSON for 0:10 (min:sec). 16:12:50 Stent catheter was removed intact over wire. 16:15:07 Place stent Inflation Number: 2 A NABOR OTW 2.25 x 12 stent ([id number]) was prepped and advanced across the Prox RCA. The stent was deployed at 13 JOHNSON for 0:10 (min:sec). 16:15:22 Stent catheter was removed intact over wire. 16:15:52 Wire removed. 16:15:53 Guide catheter removed. 16:15:59 EXOSEAL 6Fr (EX600) opened to sterile field. 16:16:35 Sheath removed intact; hemostasis achieved with Exoseal to the Right Femoral artery. 16:16:37 Procedure ended.(Physican Out) 16:17:46 Contrast amount:Isovue 300 160ml. 16:17:50 Fluoroscopy time 07.40 minutes. 16:18:00 Fluoroscopy dose: 1173 mGy 16:18:00 Flurop Dose total: 1173 16:18:04 Post-op/insertion site Right Femoral artery dressed using a 4 x 4 and Tegaderm. 16:18:07 Post-procedure physical assessment completed. ASA score P 2 - A patient with mild systemic disease as per Andrea Jeronimo MD. 16:18:10 Post procedure rhythm: sinus bradycardia 16:18:12 Estimated blood loss: 10 ml 16:18:13 Post procedure instruction explained to patient.Patient verbalizes understanding. 16:18:14 Patient needs reinforcement of post procedure teaching. 16:19:30 Procedure and supply charges have been captured, reviewed, submitted and are correct. 16:19:33 Procedure Complication : No complications 16:19:36 Report given to PCU. 16:19:37 See physician's report for complete and final results. 16:19:38 Vital chart was stopped 16:19:41 Patient transfered to PCU with Bed. 16:19:42 Procedure ended. 16:19:42 Full Disclosure recording stopped 16:19:45 End room use (Document Last) 16:20:43 Plavix 600 mg P.O. was administered by Pauline Peña RN; for antiplatelet therapy; Intervention Summary Intervention Notes Time ActionType Lesion and Equipment Action# Pressure Duration Attributes Used 16:06:36 Place stent Mid CX INTEGRITY OTW 1 13 00:10 2.75 X 8 stent ([id number]) 16:12:40 Place stent Prox RCA NABOR OTW 2.25 1 11 00:10 x 08 stent ([id number]) 16:15:07 Place stent Prox RCA NABOR OTW 2.25 2 13 00:10 x 12 stent ([id number]) Device Usage Item Name Manufacture Quantity Catalog Number Hospital Part Current Min imal Lot# / Charge Number Stock Stock Serial# Code ACIST Syringe Acist 1 59637 787947 266088 727708 20 (33369) Medical Systems Inc Bag Decanter Microtek 1 2001S 090061 52228 833825 5 (2001S) Medical Inc. ACIST Hand Acist 1 27817 019926 689357 312928 5 Control Medical (60904) Systems Inc ACIST Acist 1 12780 256878 943749 905079 5 Manifold Medical (48127) Systems Inc Tegaderm 4 x 3M 1 1626W 855801 137923 784146 5 4 (1626W) Medline Cath Medline 1 [id number] 399864 16206 154336 5 Pack ([id number]) DIAGNOSTIC St Zane 1 681291 371169 151321 801284 30 WIRE .035 260cm J wire (087744) DIAGNOSTIC Cardinal 1 AG2656 507744 19772 268859 30 Multipack 5Fr Health catheter set (VY5949) SHEATH 6FR Terumo 1 JPQ099 279254 190398 893448 40 [place] (HMF223) MULTIPACK Cardinal 1 722622 5 Pigtail 5 Fr Health catheter MULTIPACK JL Cardinal 1 277866 5 4.0 5Fr Health catheter MULTIPACK Cardinal 1 846691 5 3DRC 5Fr Health catheter CHOICE PT [place] 1 [id number] 347297 20181121 521553 5 Extra Support Scientific J 300cm guide wire (5505845Y9) INFLATOR Merit 1 QM9293 000801 809061 085769 15 Merit Medical BasixCompak (KB2348) GUIDE 6FR XB Cardinal 1 [id number] 526028 172644 215671 2 4.0 catheter Health (11812964) INTEGRITY OTW Medtronic 1 [id number] 089017 193274 537765 8 [id number] 2.75 X 8 stent ([id number]) GUIDE 6FR AR Medtronic 1 [id number] 377360 78596 195405 1 2.0 SH catheter (UW2TI2EX) NABOR OTW 2.25 Medtronic 1 [id number] 964142 13624 129904 5 [id number] x 08 stent ([id number]) NABOR OTW 2.25 Medtronic 1 [id number] 699500 16354 336268 5 [id number] x 12 stent ([id number]) EXOSEAL 6Fr Cardinal 1 EX600 574732 052005 219026 10 (EX600) Health Signature Audit [place] Stage Time Signature Unsigned Intra-Procedure 07/24/2018 Alpa Ohara 4:26:15 PM RT(R) Signatures Monitor : Alpa Ohara Signature : RT Date : Time : [address] [address]
--- NOTE | ~2018-07-23 | EC ---
PATIENT:VIDYA ANTONY DATE OF SERVICE: 07/23/18 SEX: M MEDICAL RECORD: [id number] DATE OF : 44 LOCATION:D.M2 D.212 AGE OF PATIENT: 78 ADMISSION DATE: 07/23/18 REFERRING PHYSICIAN: INTERPRETING PHYSICIAN: ARMANDO JERONIMO MD ECHOCARDIOGRAM REPORT ECHO CHARGES 4 ECHO COMPLETE Date: 07/24/18 CLINICAL DIAGNOSIS: SYNCOPE ECHOCARDIOGRAPHIC MEASUREMENTS (adult normal given) AC root (d.<3.7cm) 2.7 cm LV Septum d (<1.2 cm> 1.2 cm Valve Excursion 1.6 cm LV Septum (systole) 1.9 cm Left Atria (s.<4.0cm> 3.7 cm LVPW d(<1.2cm) 1.0 cm RV (d.<2.3cm) 2.1 cm LVPW (sytole) 1.9 cm LV diastole(<5.6CM) 5.3 cm MV E-F(>70mm/sec) cm LV systole 3.1 cm LVOT Diameter 1.7 cm MV exc.(>10mm) cm Est.ejection fraction (50-75%) % DOPPLER: LVIT cm/sec A 84.0 cm/sec E 69.0 cm/sec LA cm/sec RVSP 26.0 mmHg LVOT 102 cm/sec AOP1/2T m/s Asc. Ao 209 cm/sec RVOT 69.0 cm/sec RA cm/sec PA 76.0 cm/sec AV Gradient Peak 18.0 mmHg AV Mean 9.3 mmHg AV Area 1.1 cm MV Gradient Peak 4.4 mmHg MV Mean 1.3 mmHg MV Area cm COMMENTS: Wind Technician: 1 RODOLFO THOMASOE Olive Knocker: 1 Dr. Jeronimo TAPE# PACS Pericardial Effusion N DATE OF SERVICE: FINDINGS: 1. Left ventricular chamber size is within normal limits. Left ventricular systolic function is normal. Overall ejection fraction estimated at 55%. 2. Left atrium, right atrium, and right ventricle chamber sizes are within normal limits. 3. Valvular structures have normal structure and motion. 4. Doppler interrogation reveals only trace tricuspid regurgitation, no other valvular insufficiency or stenosis. ECHOCARDIOGRAM REPORT [id number] VIDYA ANTONY 5. No evidence of pericardial effusion or left ventricular thrombus. TRANSINT:[id number] Voice Confirmation ID: [id number] DOCUMENT ID: [id number] ARMANDO JERONIMO MD CC: [id number] DICTATION DATE: 07/24/18 173 CARE ATTENDANT: 07/24/182153 DIS IN 07/24/18 [place] [id number] [place] [id number]
--- NOTE | ~2018-07-23 | OP ---
PATIENT NAME: VIDYA ANTONY MEDICAL RECORD: [id number] :44 LOCATION:D.M2 D.2125 ADMISSION DATE:07/23/18 SURGEON: ARMANDO RICHEY MD DATE OF OPERATION: 07/24/2018 PROCEDURES: 1. PTCA stent RCA. 2. PTCA stent left circumflex. 3. Left heart catheterization. 4. Selective coronary angiography. 5. Left ventriculogram. 6. Four-vessel carotid and vertebral angiography. INDICATION: Angina and coronary artery disease, syncope. PROCEDURE IN DETAIL: After informed consent was obtained and after a detailed explanation of risks, benefits as well as alternative therapies, the patient elected to proceed with angiogram and angioplasty. The right femoral area was prepped and draped in normal sterile fashion. Right femoral artery was cannulated via modified Seldinger technique with the placement of 6-Greenlandic sheath. All catheters exchanged through this sheath. FINDINGS: The left ventriculogram was performed in standard 30-degree KONG view, reveals good cardiac wall motion throughout all segments. Overall ejection fraction estimated 60%. SELECTIVE CORONARY ANGIOGRAPHY: 1. Left main is with no significant angiographic disease. 2. Left anterior descending has mild irregularities, no flow-limiting stenosis, the previously placed stent in the LAD diagonal is widely patent. 3. Left circumflex has 70% stenosis distally. 4. Right coronary artery has 90-95% stenosis times 2 in the proximal and mid vessel. 5. The carotid and vertebral angiography was performed with subselection of each subclavian as well as the left carotid. Right side common carotid is devoid of disease. The internal carotid has an ulcerated plaque just after the bulb; however, this does not appear to be greater than 50% stenosis. The external carotid has no significant disease. The vertebral artery has no significant disease. LEFT SYSTEM: The common internal and external carotids have mild plaquing, none greater than 20%, no flow-limiting stenosis. Vertebral artery has no significant stenosis throughout. PTCA STENT OF THE LEFT CIRCUMFLEX: The stent used is a 2.75 x 9 mm Integrity. Result was 0% residual stenosis throughout. PTCA STENT OF THE RCA: Stents used were 2.25 x 8 and 2.25 x 12 both [place] stents. Result was 0% residual stenosis. OVERALL IMPRESSION: Successful PTCA stent of the RCA and left circumflex both going from 70-95% initial stenosis to 0% residual. TRANSINT:[id number] Voice Confirmation ID: [id number] DOCUMENT ID: [id number] OPERATIVE REPORT [id number] VIDYA ANTONY JEFFREY MD CC: [id number] DICTATION DATE: 07/24/18 162 SNUBBER: 07/24/182147 DIS IN 07/24/18 [place] [id number] [place] [id number]
[2018-07-23] MEDS ORDERED: ASPIRIN325 MG PO (08:27)
[2018-07-23 08:52] LABS: BASOPHILS 0.2 % (0-2); EOSINOPHILS 2.6 % (0-7); HEMATOCRIT 46.8 % (42.0-54.0); HEMOGLOBIN 15.7 g/dL (13.5-17.5); LYMPHOCYTES 5.6 % (15-50); MCH 30.5 pg (26.0-34.0); MCHC 33.5 g/dL (31.0-37.0); MCV 90.9 fL (80.0-100.0); MEAN PLATELET VOLUME 10.2 fL (7.4-10.4); MONOCYTES 7.2 % (2-11); NEUTROPHILS 84.4 % (40-80); PLATELET COUNT 155 10x3/uL (130-400); RBC 5.15 10x6/uL (4.20-6.10); RDW 13.5 % (11.5-14.5); WBC 5.7 10x3/uL (4.8-10.8)
[2018-07-23 09:10] LABS: ALBUMIN 4.1 g/dL (3.4-5.0); ALKALINE PHOSPHATASE 65 U/L (46-116); ALT (SGPT) 60 U/L (10-68); BILIRUBIN - TOTAL 0.83 mg/dL (0.2-1.3); CALC OSMOLALITY 285 mosm/kg (275-300); CALCIUM 8.5 mg/dL (8.5-10.1); CARBON DIOXIDE 28.2 mmol/L (21.0-32.0); CHLORIDE - SERUM 104 mmol/L (98-107); GLUCOSE 132 mg/dL (74-106); POTASSIUM - SERUM 4.7 mmol/L (3.5-5.1); PROTEIN - SERUM 7.4 g/dL (6.4-8.2); SODIUM 141 mmol/L (136-145); UREA NITROGEN 21 mg/dL (7-18); eGFR NON AFRICAN AMERICAN 77 mL/min (90-120)
[2018-07-23 09:29] LABS: CREATINE KINASE 471 UL (21-232)
[2018-07-23 09:30] LABS: TROPONIN-I < 0.017 ng/mL (0.000-0.060)
--- NOTE | 2018-07-23 09:30 | NUR ---
PATIENT AWAKE AND ALERT. NO NEEDS NOTED. UPDATED ON PLAN OF CARE AND DELAYS IN CARE WILL CONTINUE TO MONITOR.
[2018-07-23 09:41] LABS: APPEARANCE CLEAR (CLEAR); BILIRUBIN NEGATIVE (NEGATIVE); COLOR YELLOW (YELLOW); GLUCOSE NEGATIVE (NEGATIVE); KETONE NEGATIVE (NEGATIVE); NITRITE NEGATIVE (NEGATIVE); PROTEIN TRACE mg/dL (NEGATIVE); UROBILINOGEN NORMAL (NORMAL)
[2018-07-23 09:51] LABS: CKMB 4.2 U/L (0.0-3.6)
--- NOTE | 2018-07-23 10:25 | NUR ---
PATIENT TO CT VIA WHEELCHAIR.
--- NOTE | 2018-07-23 16:00 | NUR ---
PATIENT ADMIT FROM ER VIA WC AND HOSPITAL PERSONNEL. ASSESMENT COMPLETED. PATIENT IS STABLE AND VS ARE GOOD. PATIENT WEARING A MASK PENDING FLU SWAB RESULTS. AT BEDSIDE. TELEMETRY APPLIED. RT WRIST WITH 20 IV WITH NS @ 125 ML/HR PER MAR ORDERS. PATIENT DENIES ANY NEEDS OR PAIN. DR MACDONALD NOTIFIED VIA PHONE. WILL CONTINUE WITH PLAN OF CARE. SR UP X 2 BED IN LOW POSTION AND CALL LIGHT IN REACH.
--- NOTE | 2018-07-23 17:53 | NUR ---
PATIENT LAYING IN BED ON BACK WATCHING TV AND VISITING WITH . PATIENT IS STABLE AND VSS. PATIENT DENIES ANY NEEDS OR PAIN. WILL CONTINUE TO MONITOR. SR UP X 2 BED IN LOW POSITION AND CALL LIGHT IN REACH.
[2018-07-23 18:38] LABS: CKMB 0.7 U/L (0.0-3.6); CREATINE KINASE 96 UL (21-232); TROPONIN-I < 0.017 ng/mL (0.000-0.060)
--- NOTE | 2018-07-23 19:41 | NUR ---
EVENING ROUNDS COMPLETED. REPORT RECEIVED. PT SITTING UP IN BED WITH EYES OPEN, RR EVEN AND UNLABORED. NORMAL SALINE INFUSING ORDERED THROUGH RIGHT FOREARM PIV. AT BEDSIDE. INTRODUCED SELF TO PT. PT DENIES FURTHER NEEDS AT THIS TIME. NO S/S OF DISTRESS NOTED. CALL LIGHT IN REACH. WILL CTM.
[2018-07-23 22:37] LABS: CKMB 0.4 U/L (0.0-3.6); CREATINE KINASE 106 UL (21-232); TROPONIN-I 0.018 ng/mL (0.000-0.060)
--- NOTE | 2018-07-24 02:16 | NUR ---
I have reviewed this patient and I concur with the Shift Assessment completed by the Licensed Practical Nurse today this shift.
[2018-07-24 03:45] VITALS: BP 102/53
--- NOTE | 2018-07-24 07:10 | NUR ---
REPORT RECIEVED FROM POT RUNNER. PATIENT LAYING IN BED AWAKE AND ALERT AND ORIENTED X 3. VSS. AT BEDSIDE. AWAITNG PLAN AND ANY NEW ORDERS. WILL CONTINUE WITH PLAN OF CARE.
[2018-07-24 07:18] LABS: CKMB 0.5 U/L (0.0-3.6); CREATINE KINASE 140 UL (21-232); TROPONIN-I < 0.017 ng/mL (0.000-0.060)
[2018-07-24 08:03] VITALS: BP 112/64
--- NOTE | 2018-07-24 10:00 | NUR ---
DAVID CLAROS TO ROOM TO ANSWER PATIENT AND SPOUSE CONCERNS.
--- NOTE | 2018-07-24 11:00 | NUR ---
DR RICHEY TO ROOM. NEW ORDER RECIEVED FOR HEART CATH. CONSENTS SIGNED.
--- NOTE | 2018-07-24 11:33 | NUR ---
CALL RECIEVED FROM HEART CATH TEAM FOR PREOP. PREOP GIVEN PER MAR ORDERS. SR UP X 2 BED IN LOW POSITION AND CALL LIGHT IN REACH. AT BEDSIDE.
[2018-07-24 11:34] LABS: BASOPHILS 0.3 % (0-2); EOSINOPHILS 2.1 % (0-7); HEMATOCRIT 39.3 % (42.0-54.0); HEMOGLOBIN 12.7 g/dL (13.5-17.5); IMMATURE GRANULOCYTES 0.3 % (0-5); LYMPHOCYTES 29.3 % (15-50); MCH 29.9 pg (26.0-34.0); MCHC 32.3 g/dL (31.0-37.0); MCV 92.5 fL (80.0-100.0); MEAN PLATELET VOLUME 10.1 fL (7.4-10.4); MONOCYTES 14.7 % (2-11); NEUTROPHILS 53.3 % (40-80); PLATELET COUNT 139 10x3/uL (130-400); RBC 4.25 10x6/uL (4.20-6.10); RDW 13.8 % (11.5-14.5)
[2018-07-24 11:43] LABS: WBC 3.8 10x3/uL (4.8-10.8)
[2018-07-24 15:40] VITALS: BP 180/76
--- NOTE | 2018-07-24 19:47 | NUR ---
RESUMED CARE OF PT, LYING IN BED RESPIRATIONS EVEN AND UNLABORED ON ROOM AIR. RIGHT GROIN C/D/I, PEDAL PULSE PALPABLE. RIGHT FOREARM INFUSING NS @ 200, VSS. 65 SR ON TELEMETRY. CALL LIGHT IN REACH. SEE NURSE ASSESSMENT.
--- NOTE | 2018-07-24 21:13 | NUR ---
BED REST UP, RIGHT GROIN C/D/I, PEDAL PULSE PALPABLE. LEFT HAND IV REMOVED WITH TIP INTACT. DISCHARGE INSTRUCTIONS GIVEN.
--- NOTE | 2018-07-26 08:01 | MORECARE ---
CASE MANAGEMENT DISCHARGE SUMMARY PATIENT: VIDYA ANTONY UNIT: [id number] ADM DATE: 07/23/18 AGE: 78 : 42 SEX: M ROOM/BED: D.0473 AUTHOR: SAKINA BARCLAY PHYSICIAN: REFERRING PHYSICIAN: GIANCARLO MACDONALD MD DATE OF SERVICE: 07/26/18 Discharge Plan Patient Name: [facility] ANTONY [facility] [facility] 1940 Planned Disposition: Home Anticipated Discharge Date: 07/24/18 Discharge Date: 07/24/2018 Expected LOS: 1 Initial Reviewer: [email or web address] Initial Review Date: 07/26/2018 Generated: 07/26/18 9:01 am Patient Name: VIDYA ANTONY Page 50728 at 0801 All edits/amendments must be made on the electronic document DICTATION DATE: 07/26/18 0800 PHILOSOPHY FACULTY: [email or web address] 07/26/18 0800 RPT#: [id number] DC DATE:07/24/18 STATUS: DIS IN [facility] [address] [place] [address] END OF REPORT
== END 2018-07-24 21:14 | disposition home or self-care (01) ==
LOC: D.ER 08:16 → D.M2 10:59 → OBSVTIME 10:59 → D.M2 10:59
PROVIDERS: Family Medicine; ADMIT Internal Medicine Nephrology; ATTEND Internal Medicine Nephrology
DX: I25.119 Atherosclerotic heart disease of native coronary artery with unspecified angina pectoris (principal); R55 Syncope and collapse; Z86.73 Personal history of transient ischemic attack (TIA), and cerebral infarction without residual deficits; R42 Dizziness and giddiness

== ENCOUNTER 2018-07-28 13:35 | Emergency (ER) | payer MEDICARE ==
[~2018-07-28] VITALS: Ht 177.8 cm; Wt 84.5 kg
[~2018-07-28 13:35] MED LIST changes: +ASPIRIN325 MG PO
[2018-07-28 13:37] VITALS: Ht 177.8 cm; Wt 84.5 kg
[2018-07-28 16:23] VITALS: BP 106/58
[2018-07-28] MEDS ORDERED: PLAVIX75 MG PO (22:23)
--- NOTE | 2018-07-29 12:17 | CN ---
PATIENT NAME:VIDYA MCGRATH MEDICAL RECORD: [id number] : 44 LOCATION:D.ER ADMIT DATE: ACCOUNT: [id number] CONSULTING PHYSICIAN: ARMANDO RICHEY MD REFERRING PHYSICIAN: ALBER MARTINEZ MD DATE OF CONSULTATION: 07/28/2018 Cardiology Consultation ADMITTING DIAGNOSES: 1. Chest pain. 2. Coronary artery disease. 3. Recent percutaneous transluminal coronary angioplasty stent 2 vessels. 4. Hypertension. 5. Hyperlipidemia. HISTORY OF PRESENT ILLNESS: Mr. Mcgrath is status post percutaneous transluminal coronary angioplasty stent right coronary artery and left circumflex this week. He presented with chest pain who was markedly hypertensive with systolic blood pressure in the 200 range. He usually runs 110-120 at home. He had chest pain with this, he had no EKG changes. Troponin is normal. He was given clonidine. His chest pain abated and he is asymptomatic at this time. He has not had any dysrhythmias. PHYSICAL EXAMINATION: GENERAL APPEARANCE: Well-nourished, well-developed, appears stated age. Level of distress, comfortable. PSYCHIATRIC: Mental status, alert, normal affect. Orientation, oriented to time, place and person. EYES: Lids and conjunctiva, noninjected. No discharge, no pallor. ENT: Lips, teeth, gums, normal dentition. Oropharynx, no cyanosis, no pallor. NECK: Carotid arteries, bilateral normal upstroke, no bruits, no thrills. JUGULAR VEINS: No jugular venous pressure or distention. CERVICAL LYMPH NODES: Nontender, nonenlarged. THYROID: Not enlarged. Nontender. No nodules. LUNGS: Respiratory effort, unlabored. CHEST: Normal curvature. No thoracic deformity. No chest wall tenderness. Percussion, resonant. Auscultation, clear. No wheezes, no rales, no rhonchi. CARDIOVASCULAR: Precordial exam, nondisplaced. No heaves or pericardial thrills. Rate and rhythm, regular. Heart sounds, normal S1, normal S2. No S3, no gallop, no rub. Systolic murmur, not heard. Diastolic murmur, not heard. EXTREMITIES: No cyanosis, no edema. Peripheral pulses, full and equal in all extremities, except as noted. No bruits appreciated. ABDOMEN: Soft, nondistended. Normal aorta. No bruit. Nontender. No masses. Liver, nontender, no hepatomegaly. Spleen, nontender, no splenomegaly. MUSCULOSKELETAL: No joint tenderness. No joint swelling. No erythema. NEUROLOGICAL: Normal gait, normal strength, normal tone. SKIN: Warm and dry. OVERALL IMPRESSION: Chest pain. I reviewed the cardiac catheterization film. There are no other lesions in need of attention. He is taking the aspirin and Plavix. I am not sure of the etiology of his hypertensive episode. He usually runs in the 110-120 range at home. We will give him 1 dose of Norvasc here to continue to lower the blood pressure. Follow up as previously scheduled. CONSULT REPORT [id number] VIDYA MCGRATH TRANSINT:[id number] Voice Confirmation ID: [id number] DOCUMENT ID: [id number] ARMANDO RICHEY MD at 1217 CC: [id number] DICTATION DATE: 07/28/18 1517 DRAW IN HAND: 07/28/182021 DEP ER 07/28/18 [place] [address] [place] [address]
[2018-07-29] MEDS ORDERED: EFFIENT10 MG PO (15:12)
== END 2018-07-28 16:18 | disposition home or self-care (01) ==
LOC: D.ER 13:35
DX: I10 Essential (primary) hypertension (principal); R07.9 Chest pain, unspecified

== ENCOUNTER 2018-07-28 22:11 | Observation (INO) | payer MEDICARE ==
[~2018-07-28] VITALS: Ht 177.8 cm; Wt 84.4 kg
--- NOTE | ~2018-07-28 | HEMODYNAMI ---
PATIENT:VIDYA ANTONY MEDICAL RECORD: [id number] : 44 [id number] ADMISSION DATE: 07/28/18 Generatedon:07/29/201812:15 Patient name: VIDYA ANTONY Patient #: [id number] SSN: : 1940 Date of study: 07/29/2018 Page: Of Hemodynamic Procedure Report Patient Data Patient Demographics Procedure consent was obtained First Name: VIDYA Gender: Male Last Name: CASSIA : 1940 [facility] Initial: C Age: 78 year(s) Patient #: [id number] Race: Additional ID: [id number] Contact details Address: [address] [place] [address] [place] [facility] [place]: [address] Past Medical History Allergies: No known allergies Admission Admission Data Admission Date: 07/28/2018 Admission Time: 23:08 Arrival Date: 07/28/2018 Arrival Time: 23:08 Admit Source: Other Insurance Payor: Private Room #: D.2114 health insurance, Medicare Height (in.): 70 BSA: 2.02 (m2) Height (cm.): 177.8 BMI: 26.69 (kg/m2) Weight (lbs.): 186 Weight (kg.): 84.37 Lab Results Lab Result Date: 07/29/2018 Lab Result Time: 0:00 Biochemistry Name Units Result Min Max BUN mg/dl 12 --(-*--)-- 7 18 Creatinine mg/dl 0.9 --(-*--)-- 0.6 1.3 CBC Name Units Result Min Max Hemoglobin g/dl 13.1 -*(----)-- 13.5 17.5 Procedure Procedure Types Cath Procedure Diagnostic Procedure [facility] w/Coronaries PCI Procedure Coronary Stent Coronary Stent Initial Procedure Description Procedure Date Procedure Date: 07/29/2018 Procedure Start Time: 11:55 Procedure End Time: 12:12 Procedure Staff Name Function Andrea Jeronimo MD Performing Physician Mikayla Disla RT Monitor Bambi Barrios RT Scrub Erma Pike RN Nurse Procedure Data Cath Procedure Fluoroscopy Diagnostic fluoroscopy Total fluoroscopy Time: 5.3 time: 5.3 min min Diagnostic fluoroscopy Total fluoroscopy dose: 814 dose: 814 mGy mGy Contrast Material Contrast Material Type Amount (ml) Isovue 300 72 Entry Location Entry Primary Successful Side Size Upsize Upsize Entry Closure Succes sful Closure Location (Fr) 1 (Fr) 2 (Fr) Remarks Device Remarks Femoral Left 5 Fr 6 Fr Exoseal artery Short Estimated blood loss: 10 ml Diagnostic catheters Device Type Used For End Catheter Placement MULTIPACK Pigtail 5 Fr Procedure catheter MULTIPACK JL 4.0 5Fr Procedure catheter MULTIPACK 3DRC 5Fr Procedure catheter Procedure Complications No complications Procedure Medications Medication Administration Route Dosage 0.9% NaCl I.V. 100 ml/hr Oxygen etCO2 Nasal cannula 2 l/min Lidocaine 2% added to field 20 Heparin Flush Bag added to field 2 bags (1000units/500ml NS) Versed I.V. 2 mg Fentanyl I.V. 50 mcg Versed I.V. 2 mg Fentanyl I.V. 50 mcg Heparin Bolus I.V. 4000 units Integrilin (Bolus I.V. 7.3 ml 2mg/ml) Integrilin (Bolus 7.3 ml 2mg/ml) Effient P.O. 60 mg Hemodynamics Rest BSA: 2.02 (m2) HGB: 13.1 (g/dl) O2 Consumption: Estimated: 218.19 (ml/min) O2 Co nsumption indexed: Estimated:108.01 (ml/min/m) Heart Rate: 52 (bpm) Snapshots Pre Cath Intra NCS Post Cath Vital Signs Time Heart Resp SPO2 etCO2 NIBP (mmHg) Rhythm Pain Sedation Rate (ipm) (%) (mmHg) Status Level (bpm) 11:42:59 65 17 100 34.8 159/94(139) NSR 0 (11) 10(A) , No pain 11:47:17 67 14 98 15 151/83(125) NSR 0 (11) 10(A) , No pain 11:51:35 67 19 96 27.4 128/76(104) NSR 0 (11) 10(A) , No pain 11:55:45 65 13 98 18.5 126/76(94) NSR 0 (11) 9(A) , No pain 11:59:57 69 10 97 15 116/71(84) NSR 0 (11) 9(A) , No pain 12:04:09 65 14 98 20 122/58(76) NSR 0 (11) 9(A) , No pain 12:08:23 65 10 97 25 106/58(77) NSR 0 (11) 9(A) , No pain 12:12:27 64 12 98 30 115/68(90) NSR 0 (11) 10(A) , No pain Medications Time Medication Route Dose Verified Delivered Reason Notes Effectiveness by by 11:42:07 0.9% NaCl I.V. 100 Andrea Erma used for ml/hr Phani Pike block machine operator 11:42:14 Oxygen etCO2 2 Andrea Erma used for Nasal l/min Phani Pike procedure cannula RN 11:42:18 Lidocaine 2% added 20ml Andrea Andrea for local to vial Phani Jeronimo MD anesthetic field 11:42:24 Heparin Flush added 2 Andrea Andrea used for Bag to bags Phani Jeronimo MD procedure (1000units/500ml field NS) 11:45:18 Versed I.V. 2 mg Andrea Erma for sedation Phani Pike RN 11:45:23 Fentanyl I.V. 50 Andrea Erma for sedation mcg Phani Pike RN 11:51:55 Versed I.V. 2 mg Andrea Erma for sedation Phani Pike RN 11:52:00 Fentanyl I.V. 50 Andrea Erma for sedation mcg Phani Pike RN 12:01:54 Heparin Bolus I.V. 4000 Andrea Erma for units Phani Pike anticoagulation RN 12:06:52 Integrilin I.V. 7.3 Andrea Erma for waste d (Bolus 2mg/ml) ml Phani Pike antiplatelet 2.7mL RN therapy 12:07:08 Integrilin IC 7.3 Andrea Andrea for waste d (Bolus 2mg/ml) ml Phani Jeronimo MD antiplatelet 2.7mL therapy 12:07:20 Effient P.O. 60 mg Andrea Erma for Phani Pike antiplatelet RN therapy Procedure Log Time Note 11:22:01 Informed consent obtained and on chart 11:22:07 Diagnostic Cath Status : Elective 11:22:24 Mikayla Disla RT(R) sent for patient. Start room use. 11:22:24 Time tracking: Regular hours (M-F 7:00 - 5:00) 11:22:29 Plan of Care:Hemodynamics will remain stable., Cardiac rhythm will remain stable., Comfort level will be maintained., Respiratory function will remain adequate., Patient/ family verbilizes understanding of procedure., Procedure tolerated without complication., Recovers from procedure without complications.. 11::55 Lab Result : BUN 12 mg/dl 11::55 Lab Result : Hemoglobin 13.1 g/dl 11::55 Lab Result : Creatinine 0.9 mg/dl 11::57 Admit Source: Other 11:23:09 Patient Weight : 186 lbs 11:23:15 Patient Height : 70 inches 11:23:21 Insurance Payor : Private health insurance, Medicare 11:23:35 Arrival Date: 07/28/2018 11:08:00 PM 11:29:49 Patient received from Med II to CCL 2 Alert and oriented. Tansferred to table in Supine position. 11:29:51 Warm blankets applied, and sherita hugger turned on for patient comfort. 11:29:51 Correct patient and procedure confirmed by team. 11:29:52 ECG and BP/O2 sat monitors applied to patient. 11:34:22 H&P Date Dictated: 07/28/2018 Within 30 days and on chart.. 11:34:28 Pre-procedure instructions explained to patient. 11:34:31 Family in waiting room. 11:34:33 Patient NPO since Midnight. 11:34:39 Patient allergic to No known allergies 11:34:42 Is the patient allergic to Iodine/contrast media? No. 11:34:50 Was the patient premedicated? Yes 11:34:51 Is patient on blood thinner?Yes 11:34:54 ACC The patient was administered the following blood thiners within the last 24 hours: ACCPlavix 11:34:57 Patient diabetic? No. 11:35:04 Snore? Yes 11:35:06 Sleep apnea? No 11:35:10 Deviated septum? No 11:35:24 Dentures? No ? 11:35:44 Patient pain scale 0/10 ?. 11:35:51 IV patent on arrival in right hand with 0.9% NaCl at [facility]. 11:35:58 Lab results completed and on chart. 11:36:11 Left groin area was prepped with chlora-prep and draped in sterile fashion 11:36:12 Alarms reviewed by R. N. 11:36:12 Sharps counted by scrub and verified by R.N. 11:41:55 Vital chart was started 11:42:07 0.9% NaCl 100 ml/hr I.V. was administered by Erma Pike RN; used for procedure; 11:42:14 Oxygen 2 l/min etCO2 Nasal cannula was administered by Erma Pike RN; used for procedure; :42:18 Lidocaine 2% 20ml vial added to field was administered by Andrea Jeronimo MD; for local anesthetic; 11:42:24 Heparin Flush Bag (1000units/500ml NS) 2 bags added to field was administered by Andrea Jeronimo MD; used for procedure; :44:55 Physician arrived ::55 --------ALL STOP TIME OUT------ 11:44:56 Final Timeout: patient, procedure, and site verified with staff and physician. All members of the team are in agreement. 11::58 Left groin site verified by team. 11:45:03 Maximum allowable Isovue 300 dose 300ml. Physician notified. (300ml for normal creatinines. For patients with creatinine of 1.7 or higher multiply weight(kg) x 5 divided by creatinine.) 11:45:08 Fire Safety Assessment: A--An alcohol-based skin anteseptic being used preoperatively., C--Open oxygen or nitrous oxide is being used., D--An ESU, laser, or fiber-optic light is being used. 11:45:13 Physical assessment completed. ASA score P 2 - A patient with mild systemic disease as per Andrea Jeronimo MD. 11:45:17 Sedation plan: IV Moderate Sedation Medication:Versed, Fentanyl 11:45:18 Versed 2 mg I.V. was administered by Erma Pike RN; for sedation; :45:23 Fentanyl 50 mcg I.V. was administered by Erma Pike RN; for sedation; 11:45:25 Pre procedure: left dorsailis pedis pulse 1+ Palpable, but thready & weak; easily obliterated 11:45:30 Baseline sample Acquired. 11:45:35 Rhythm: sinus rhythm 11:45:37 Full Disclosure recording started 11:45:46 Use device set Femoral Dx 11:45:47 ACIST Syringe (76521) opened to sterile field. 11:45:47 Bag Decanter (2002S) opened to sterile field. 11:45:48 Medline Cath Pack ([id number]) opened to sterile field. 11:45:48 DIAGNOSTIC WIRE .035 260cm J wire (423481) opened to sterile field. 11:45:49 ACIST Hand Control (47544) opened to sterile field. 11:45:50 ACIST Manifold (06077) opened to sterile field. 11:45:50 DIAGNOSTIC Multipack 5Fr catheter set (RN2175) opened to sterile field. 11:45:53 SHEATH 5FR [place] (VHP936) opened to sterile field. 11:51:55 Versed 2 mg I.V. was administered by Erma Pike RN; for sedation; 11:52:00 Fentanyl 50 mcg I.V. was administered by Erma Pike RN; for sedation; 11:54:46 Procedure started. 11:55:27 Local anesthetic to left femerol artery with Lidocaine 2% by Andrea Jeronimo MD.INITIAL ACCESS ONLY 11:55:37 A 5 Fr sheath was inserted into the Left Femoral artery 11:56:39 A MULTIPACK Pigtail 5 Fr catheter was advanced over the wire and used for Procedure. 11:57:02 LV angiography performed. 11:57:21 EF : 55 % 11:57:22 Catheter removed. 11:57:29 A MULTIPACK JL 4.0 5Fr catheter was advanced over the wire and used for Procedure. 11:58:25 LCA angiography performed. 11:58:27 Catheter removed. 11:58:33 A MULTIPACK 3DRC 5Fr catheter was advanced over the wire and used for Procedure. 11:58:46 RCA angiography performed. 12:00:12 Catheter removed. 12:00:26 Sheath upsized to a 6 Fr Short. 12:01:43 GUIDE 6FR 3DRC SH catheter ([id number]) opened to sterile field. 12:01:44 CHOICE PT Extra Support 182cm wire ([id number]) opened to sterile field. 12:01:45 INFLATOR Merit BasixCompak (NW1884) opened to sterile field. 12:01:46 SHEATH 6FR [place] (LHE211) opened to sterile field. 12:01:54 Heparin Bolus 4000 units I.V. was administered by Erma Pike RN; for anticoagulation; 12:01:58 6 Fr 3DRCsh guide catheter was inserted over the wire 12:02:04 choice wire advanced. 12:02:06 Wire advanced across lesion. 12:03:34 Inflate balloon Inflation number: 1 A EUPHORA 2.0 x 15 Balloon ([id number]) was prepped and advanced across the Prox RCA, then inflated to 11 JOHNSON for 0:09 (min:sec). 12:04:01 Inflation number: 2 The EUPHORA 2.0 x 15 Balloon ([id number]) was reinflated across the Prox RCA, to 11 JOHNSON for 0:15 (min:sec). 12:04:29 Inflation number: 3 The EUPHORA 2.0 x 15 Balloon ([id number]) was reinflated across the Prox RCA, to 7 JOHNSON for 0:07 (min:sec). 12:04:35 Inflation number: 4 The EUPHORA 2.0 x 15 Balloon ([id number]) was reinflated across the Prox RCA, to 7 JOHNSON for 0:03 (min:sec). 12:05:02 Balloon removed over the wire. 12:06:52 Integrilin (Bolus 2mg/ml) 7.3 ml I.V. was administered by Erma Pike RN; for antiplatelet therapy; wasted 2.7mL 12:07:08 Integrilin (Bolus 2mg/ml) 7.3 ml IC was administered by Andrea Jeronimo MD; for antiplatelet therapy; wasted 2.7mL 12:07:20 Effient 60 mg P.O. was administered by Erma Pike RN; for antiplatelet therapy; 12:09:04 Place stent Inflation Number: 1 A INTEGRITY RX 2.25 x 26 stent ([id number]) was prepped and advanced across the Prox RCA1. The stent was deployed at 8 JOHNSON for 0:08 (min:sec). 12::29 Inflation number: 2 The stent balloon was then re-inflated across the Prox RCA1 to 17 JOHNSON for 0:05 (min:sec). 12:10:46 EXOSEAL 6Fr (EX600) opened to sterile field. 12:10:51 Wire removed. 12:10:53 Guide catheter removed. 12:11:02 Sheath removed intact; hemostasis achieved with Exoseal to the Left Femoral artery. 12:11:05 Procedure ended.(Physican Out) 12:11:17 Fluoroscopy time 05.30 minutes. 12:11:23 Fluoroscopy dose: 814 mGy 12:11: Flurop Dose total: 814 12:11:28 Contrast amount:Isovue 300 72ml. 12:11:30 Sharps counted by scrub and verified by R.N. 12:11:31 Insertion/operative site no bleeding no hematoma. 12:11:38 Post left femerol artery:stable 12:11:41 Post Procedure Pulses reassessed and unchanged 12:11:45 Post-procedure physical assessment completed. ASA score P 2 - A patient with mild systemic disease as per Andrea Jeronimo MD. 12:11:48 Post procedure rhythm: unchanged. 12:11:54 Estimated blood loss: 10 ml 12:11:56 Post procedure instruction explained to patient.Patient verbalizes understanding. 12:12:16 Procedure type changed to Cath procedure, Diagnostic procedure, LHC, LHC w/Coronaries, PCI procedure, Coronary Stent, Coronary Stent Initial 12:12:17 Procedure and supply charges have been captured, reviewed, submitted and are correct. 12:12:46 Procedure Complication : No complications 12:12:49 Vital chart was stopped 12:12:49 See physician's report for complete and final results. 12:12:51 Report given to Pre/Post Procedure Room. 12:12:54 Patient transfered to Pre/Post Procedure Room with Stretcher. 12:12:56 Procedure ended. 12:12:56 Full Disclosure recording stopped 12:13:00 End room use (Document Last) 12:13:00 End room use (Document Last) Intervention Summary Intervention Notes Time ActionType Lesion and Equipment Action# Pressure Duration Attributes Used 12:03:34 Inflate Prox RCA EUPHORA 2.0 1 11 00:09 balloon x 15 Balloon ([id number]) 12:04:01 Reinflate Prox RCA EUPHORA 2.0 2 11 00:15 balloon x 15 Balloon ([id number]) 12:04:29 Reinflate Prox RCA EUPHORA 2.0 3 7 00:07 balloon x 15 Balloon ([id number]) 12:04:35 Reinflate Prox RCA EUPHORA 2.0 4 7 00:03 balloon x 15 Balloon ([id number]) 12:09:04 Place stent Prox RCA1 INTEGRITY RX 1 8 00:08 2.25 x 26 stent ([id number]) 12:09:29 Reinflate Prox RCA1 INTEGRITY RX 2 17 00:05 stent 2.25 x 26 balloon stent ([id number]) Device Usage Item Name Manufacture Quantity Catalog Number Hospital Part Current Mini mal Lot# / Charge Number Stock Stock Serial# Code ACIST Acist 1 73892 829014 484112 208610 20 Syringe Medical (51696) Systems Inc Bag Decanter Microtek 1 155832 23288 793868 5 () Medical Inc. Medline Cath Medline 1 [id number] 618888 48211 185939 5 Pack ([id number]) DIAGNOSTIC St Zane 1 021056 558177 017200 947437 30 WIRE .035 260cm J wire (560918) ACIST Hand Acist 1 04308 625779 618809 049230 5 Control Medical (86934) Systems Inc ACIST Acist 1 17807 402211 043419 498187 5 Manifold Medical (50531) Systems Inc DIAGNOSTIC Cardinal 1 FV4138 797591 43864 379946 30 Multipack Health 5Fr catheter set (BG3151) SHEATH 5FR Terumo 1 PON310 305460 946986 827755 5 [place] (BIX909) MULTIPACK Cardinal 1 972430 5 Pigtail 5 Fr Health catheter MULTIPACK JL Cardinal 1 237447 5 4.0 5Fr Health catheter MULTIPACK Cardinal 1 870173 5 3DRC 5Fr Health catheter GUIDE 6FR Medtronic 1 [id number] 939560 178967 715007 1 3DRC SH catheter (NA61WIRQU) CHOICE PT [place] 1 [id number] 976242 068021 812328 5 Extra Scientific Support 182cm wire ([id number]) INFLATOR Merit 1 PB5834 295177 678460 071357 15 Curemark Medical BasixCompak (FX4518) SHEATH 6FR Terumo 1 WYI359 397434 972239 035318 40 [place] (TQL989) EUPHORA 2.0 Medtronic 1 [id number] 766996 725639 723901 5 [id number] x 15 Balloon ([id number]) INTEGRITY RX Medtronic 1 [id number] 782798 497714 826477 5 [id number] 2.25 x 26 stent ([id number]) EXOSEAL 6Fr Cardinal 1 EX600 442084 764093 402494 10 (EX600) Health Signature Audit [place] Stage Time Signature Unsigned Intra-Procedure 07/29/2018 Mikayla Disla 12:15:42 PM RT(R) Signatures Monitor : Mikayla Disla Signature : RT Date : Time : [place] [id number] [place] [id number]
[2018-07-28] MEDS ORDERED: PLAVIX75 MG PO (22:23)
[2018-07-28 23:17] LABS: BASOPHILS 0.5 % (0-2); EOSINOPHILS 3.4 % (0-7); HEMATOCRIT 39.4 % (42.0-54.0); HEMOGLOBIN 13.6 g/dL (13.5-17.5); IMMATURE GRANULOCYTES 0.2 % (0-5); LYMPHOCYTES 21.5 % (15-50); MCH 30.3 pg (26.0-34.0); MCHC 34.5 g/dL (31.0-37.0); MCV 87.8 fL (80.0-100.0); MEAN PLATELET VOLUME 9.8 fL (7.4-10.4); MONOCYTES 11.9 % (2-11); NEUTROPHILS 62.5 % (40-80); RBC 4.49 10x6/uL (4.20-6.10); RDW 13.2 % (11.5-14.5); WBC 5.9 10x3/uL (4.8-10.8)
[2018-07-28 23:20] LABS: PLATELET COUNT 172 10x3/uL (130-400)
--- NOTE | 2018-07-28 23:42 | NUR ---
PT IN WITH CHEST PAIN, DENIES CHEST PAIN AT THIS TIME. SEEN HERE EARLIER TODAY WITH SAME COMPLAINT, SPOUSE AT BEDSIDE.
[2018-07-28 23:47] LABS: CALC OSMOLALITY 286 mosm/kg (275-300); CALCIUM 8.7 mg/dL (8.5-10.1); CARBON DIOXIDE 23.5 mmol/L (21.0-32.0); CHLORIDE - SERUM 105 mmol/L (98-107); CKMB 31.2 U/L (0.0-3.6); CREATINE KINASE 376 UL (21-232); CREATININE - SERUM 0.9 mg/dL (0.6-1.3); GLUCOSE 149 mg/dL (74-106); POTASSIUM - SERUM 3.9 mmol/L (3.5-5.1); SODIUM 142 mmol/L (136-145); UREA NITROGEN 16 mg/dL (7-18); eGFR NON AFRICAN AMERICAN 87 mL/min (90-120)
[2018-07-28 23:49] LABS: TROPONIN-I 3.928 ng/mL (0.000-0.060)
--- NOTE | 2018-07-29 00:40 | NUR ---
ADMIT TO ROOM 2113 FROM ER. ALERT/ORIENTED. ACCOMPANIED BY SPOUSE. ADMISSION ASSESSMENT AND HISTORY INITIATED. HOME MEDS REVIEWED/VERIFIED. PLAN OF CARE INTIATED. PT TO BE NPO UNTIL SEEN BY PHYSICIAN PRACTICE CONSULTANT IN AM.
[2018-07-29 02:54] VITALS: BP 142/85; BMI 26.7
--- NOTE | 2018-07-29 03:15 | NUR ---
RESTING WITH NO DISTRESS. SB/58 PER TELEMETRY. NS @ 50ML/HR INFUSING TO PIV. MONITOR AND CPOC.
[2018-07-29 05:10] VITALS: BP 117/62
[2018-07-29 05:34] LABS: BASOPHILS 0.6 % (0-2); EOSINOPHILS 4.9 % (0-7); HEMATOCRIT 38.8 % (42.0-54.0); HEMOGLOBIN 13.1 g/dL (13.5-17.5); IMMATURE GRANULOCYTES 0.2 % (0-5); LYMPHOCYTES 31.1 % (15-50); MCHC 33.8 g/dL (31.0-37.0); MCV 88.8 fL (80.0-100.0); MEAN PLATELET VOLUME 9.7 fL (7.4-10.4); MONOCYTES 13.2 % (2-11); PLATELET COUNT 172 10x3/uL (130-400); RBC 4.37 10x6/uL (4.20-6.10); RDW 13.3 % (11.5-14.5); WBC 5.2 10x3/uL (4.8-10.8)
[2018-07-29 06:08] LABS: CALC OSMOLALITY 285 mosm/kg (275-300); CALCIUM 8.3 mg/dL (8.5-10.1); CARBON DIOXIDE 26.6 mmol/L (21.0-32.0); CHLORIDE - SERUM 107 mmol/L (98-107); CREATININE - SERUM 0.9 mg/dL (0.6-1.3); GLUCOSE 113 mg/dL (74-106); MAGNESIUM - SERUM 1.8 mg/dL (1.8-2.4); PHOSPHOROUS 3.3 mg/dL (2.5-4.9); POTASSIUM - SERUM 4.2 mmol/L (3.5-5.1); SODIUM 143 mmol/L (136-145); UREA NITROGEN 12 mg/dL (7-18); eGFR NON AFRICAN AMERICAN 87 mL/min (90-120)
[2018-07-29 06:10] LABS: TROPONIN-I 10.569 ng/mL (0.000-0.060)
--- NOTE | 2018-07-29 07:30 | NUR ---
RECEIVED PT IN BED EYES CLOSED RESP UNLABORED NAD NOTED
[2018-07-29 08:59] VITALS: BP 110/71
[2018-07-29 09:08] VITALS: Ht 177.8 cm; Wt 84.4 kg
--- NOTE | 2018-07-29 11:35 | NUR ---
PT TO REPORTING SPECIALIST VIA BED IN STABLE CONDITION
--- NOTE | 2018-07-29 12:17 | HP ---
PATIENT: VIDYA MCGRATH MEDICAL RECORD: [id number] ACCOUNT: [id number] LOCATION:[facility] D.2114 : 44 ADMISSION DATE: 07/28/18 PCP: CORRY MURPHY MD HISTORY AND PHYSICAL EXAMINATION DIAGNOSES: 1. Angina. 2. Increased troponin. 3. Coronary artery disease. 4. Recent PTCA and stent, left circumflex and RCA. 5. Hyperlipidemia. HISTORY: Mr. Mcgrath presented with anginal symptomatology last week. He underwent PTCA and stent of the RCA and the left circumflex. He presented again yesterday with recurrent chest discomfort. Initial troponin in the ER was normal. He was discharged home. He had recurrence of chest pain and came back. His troponin is now 10. He had a relatively small RCA that was intervened and a very large circ that was intervened. His LAD had mild disease. His EKG is with no acute changes. He is pain free this morning; however, we cannot ignore the increased troponin. PHYSICAL EXAMINATION: GENERAL APPEARANCE: Well-nourished, well-developed, appears stated age. Level of distress, comfortable. PSYCHIATRIC: Mental status, alert, normal affect. Orientation, oriented to time, place and person. EYES: Lids and conjunctiva, noninjected. No discharge, no pallor. ENT: Lips, teeth, gums, normal dentition. Oropharynx, no cyanosis, no pallor. NECK: Carotid arteries, bilateral normal upstroke, no bruits, no thrills. JUGULAR VEINS: No jugular venous pressure or distention. CERVICAL LYMPH NODES: Nontender, nonenlarged. THYROID: Not enlarged. Nontender. No nodules. LUNGS: Respiratory effort, unlabored. CHEST: Normal curvature. No thoracic deformity. No chest wall tenderness. Percussion, resonant. Auscultation, clear. No wheezes, no rales, no rhonchi. CARDIOVASCULAR: Precordial exam, nondisplaced. No heaves or pericardial thrills. Rate and rhythm, regular. Heart sounds, normal S1, normal S2. No S3, no gallop, no rub. Systolic murmur, not heard. Diastolic murmur, not heard. EXTREMITIES: No cyanosis, no edema. Peripheral pulses, full and equal in all extremities, except as noted. No bruits appreciated. ABDOMEN: Soft, nondistended. Normal aorta. No bruit. Nontender. No masses. Liver, nontender, no hepatomegaly. Spleen, nontender, no splenomegaly. MUSCULOSKELETAL: No joint tenderness. No joint swelling. No erythema. NEUROLOGICAL: Normal gait, normal strength, normal tone. SKIN: Warm and dry. OVERALL IMPRESSION: Recurrent chest pain after standing with increased troponin. We will proceed with repeat coronary angiography. Further care depends upon findings of the angiography. TRANSINT:[id number] Voice Confirmation ID: [id number] DOCUMENT ID: [id number] HISTORY AND PHYSICAL [id number] VIDYA MCGRATH JEFFREY MD at 1217 CC: [id number] DICTATION DATE: 07/29/18 1021 DIGITAL MEDIA STRATEGIST: 07/29/18 1048 ADM IN [place] [id number] [place] [address]
--- NOTE | 2018-07-29 12:40 | NUR ---
RECEIVED PT BACK FROM COUNTER CLERK TRACTOR PARTS VIA BED VSS PPPX4 DRSG C/D/I TO LT GROIN WILL CONTINUE TO MONITOR
[2018-07-29] MEDS ORDERED: EFFIENT10 MG PO (15:12)
[2018-07-29 15:30] VITALS: BP 136/79
--- NOTE | 2018-07-29 18:40 | NUR ---
REVIEWED DISCHARGE INSTRUCTIONS STATES UNDERSTANDING COPY GIVEN DCD SALINE LOCK TO RT WRIST WITH IV CATH INTACT SITE FREE OF REDNESS OR EDEMA PT DISCHARGED HOME LEFT UNIT VIA W/C IN STABLE CONDITION WITH ALL PERSONAL BELONGINGS
--- NOTE | 2018-07-31 09:56 | MORECARE ---
CASE MANAGEMENT DISCHARGE SUMMARY PATIENT: VIDYA ANTONY UNIT: [id number] ADM DATE: 07/28/18 AGE: 78 : 44 SEX: M ROOM/BED: D.2114 AUTHOR: SAKINA BARCLAY PHYSICIAN: REFERRING PHYSICIAN: ARMANDO RICHEY MD DATE OF SERVICE: 07/31/18 Discharge Plan Patient Name: [facility]IDYA ANTONY [facility] [facility] 1940 Planned Disposition: Home Anticipated Discharge Date: 07/29/18 Discharge Date: 07/29/2018 Expected LOS: 1 Initial Reviewer: [email or web address] Initial Review Date: 07/31/2018 Generated: 07/31/18 10:56 am Patient Name: VIDYA ANTONY Page 06030 at 0956 All edits/amendments must be made on the electronic document DICTATION DATE: 07/31/18954 CREATIVE TECHNOLOGIST: KYRA 07/31/18954 RPT#: [id number] DC DATE:07/29/18 STATUS: DIS IN [facility] [address] [place] [address] END OF REPORT
--- NOTE | 2018-07-31 10:55 | OP ---
PATIENT NAME: VIDYA ANTONY MEDICAL RECORD: [id number] :44 LOCATION:D.M2 D.2114 ADMISSION DATE:07/28/18 SURGEON: ARMANDO RICHEY MD DATE OF OPERATION: 07/29/2018 DATE OF SERVICE: 07/29/2018 PROCEDURES: 1. PTCA stent RCA. 2. Left heart catheterization. 3. Selective coronary angiography. 4. Left ventriculogram. INDICATION: Non-Q-wave myocardial infarction change of status after recent PTCA stent. PROCEDURE IN DETAIL: After informed consent was obtained and after a detailed description of risks, benefits as well as alternative therapies, the patient elected to proceed with angiogram and angioplasty. The left femoral area was prepped and draped in normal sterile fashion. Left femoral artery was cannulated via modified Seldinger technique with placement of 6-Icelandic sheath. All catheters exchanged through this sheath. FINDINGS: Left ventriculogram was performed in standard 30-degree KONG view, reveals good cardiac wall motion throughout all segments. Overall ejection fraction estimated 60%. SELECTIVE CORONARY ANGIOGRAPHY: 1. Left main is with no significant angiographic disease. 2. Left anterior descending has moderate irregularities, but no flow-limiting stenosis. 3. The left circumflex is widely patent, previously placed is widely patent. 4. Right coronary has 2 previously placed stents, one proximal ostial and one in the proximal mid vessel. The vessel is acutely close at the proximal mid vessel. PTCA STENT OF THE RCA: The RCA is small. We were able to get a wire and balloon across it. The balloon has yielded a suboptimal result with continued thrombus burden. We stented it with a 2.25 x 30 mm Integrity. After this, the proximal vessel was opened with EDUARDO 3 flow. There was continued thrombus burden throughout the mid vessel. He very well may be a Plavix nonresponder. We gave Integrilin and will load him with Effient. Hopefully, the distal vessel thrombus will clear up overtime. TRANSINT:[id number] Voice Confirmation ID: [id number] DOCUMENT ID: [id number] ARMANDO RICHEY MD at 1055 CC: [id number] DICTATION DATE: 07/29/18 1217 MAINTENANCE COORDINATOR: 07/29/18 1253 DIS IN 07/29/18 [place] [id number]
--- NOTE | 2018-07-31 10:55 | DS ---
PATIENT:VIDYA MCGRATH :44 MEDICAL RECORD: [id number] DISCHARGE SUMMARY ADMISSION DATE: 07/28/18 DISCHARGE DATE: 07/29/18 DATE OF SERVICE: 07/29/2018 DIAGNOSES: 1. Acute thrombosis, right coronary artery. 2. Percutaneous coronary angioplasty and stent of the right coronary artery this admission. 3. Coronary artery disease. 4. Hyperlipidemia. HOSPITAL COURSE: Mr. Mcgrath presents with an acute closure of the RCA that was intervened earlier in the week. It is a relatively small RCA. His troponin did go up to 10. He became pain free. The next morning, underwent cardiac catheterization revealing total occlusion of the RCA in the mid vessel and underwent successful PTCA stent, was changed from Plavix to Effient, discharged home with no changes in his medication as he is already on atorvastatin. No beta-hina was added due to existing bradycardia. Follow up with [facility] as previously scheduled. TRANSINT:[id number] Voice Confirmation ID: [id number] DOCUMENT ID: [id number] ARMANDO RICHEY MD at 1055 CC: [id number] DICTATION DATE: 07/29/18 1217 TURBINE BLADE ASSEMBLER: 07/30/18 0951 DIS IN 07/29/18 [place] [address]
== END 2018-07-29 18:40 | disposition home or self-care (01) ==
LOC: D.ER 22:11 → OBSVTIME 23:08 → D.M2 23:08
PROVIDERS: Family Medicine; ADMIT Internal Medicine Interventional Cardiology; ATTEND Internal Medicine Interventional Cardiology
DX: I21.4 Non-ST elevation (NSTEMI) myocardial infarction (principal); I25.119 Atherosclerotic heart disease of native coronary artery with unspecified angina pectoris; E78.5 Hyperlipidemia, unspecified

== ENCOUNTER → 2019-10-31 10:02 | Outpatient (CLI) | payer BC ==
[2018-07-29 09:08] VITALS: BMI 26.6
[~2019-10-31 10:02] MED LIST changes: +EFFIENT10 MG PO
== END | disposition home or self-care (01) ==
LOC: D.HCCARDIO 10:00
PROVIDERS: ATTEND Internal Medicine Cardiovascular Disease
DX: I25.10 Atherosclerotic heart disease of native coronary artery without angina pectoris (principal)

== ENCOUNTER 2019-11-27 10:58 | Outpatient (CLI) | payer MEDICARE ==
[~2019-11-27] VITALS: Ht 177.8 cm; Wt 87.0 kg
--- NOTE | ~2019-11-27 | HP ---
PATIENT: VIDYA ANTONY MEDICAL RECORD: [id number] ACCOUNT: [id number] LOCATION:[place] : 44 ADMISSION DATE: 11/27/19 PCP: CORRY MURPHY MD HISTORY AND PHYSICAL EXAMINATION HISTORY OF PRESENT ILLNESS: This is a 79-year-old gentleman with known history of coronary artery disease, status post multivessel intervention via Dr. Jeronimo, returned to the office with recurrent ischemic symptoms with Cardiolite stress testing, found to have reversible ischemic consistent with 2-vessel disease, continued symptoms, sought medical management plan for angiography, intervention based on above. PAST MEDICAL HISTORY: Includes: 1. History of hypertension. 2. Hyperlipidemia. 3. Coronary artery disease as described above. PHYSICAL EXAMINATION: GENERAL: Pleasant, in no acute distress, appears stated age. HEENT: Normocephalic, atraumatic. NECK: No JVD or bruit. HEART: Regular. LUNGS: Good air excursion. ABDOMEN: Soft, nontender. EXTREMITIES: Pulse 2+. No edema. IMPRESSION: Recurrent ischemia despite medical therapy, possible multivessel disease via cardiac stress testing, angiography, intervention based on above. TRANSINT:[id number] Voice Confirmation ID: [id number] DOCUMENT ID: [id number] SARAH PARKER MD CC: [id number] DICTATION DATE: 11/27/19825 BRAKE ASSEMBLER: 11/27/19 08 PRE [facility] [address] [place] [id number]
--- NOTE | ~2019-11-27 | OP ---
PATIENT NAME: VIDYA ANTONY MEDICAL RECORD: [id number] :44 LOCATION:D.CAT ADMISSION DATE: SURGEON: SARAH PARKER MD DATE OF OPERATION: 11/27/2019 PROCEDURE: Left heart catheterization, selective coronary angiography, right femoral artery approach. CATHETERS: A 5-Icelandic sheath, 5/4 left and right Roman, 5/4 pig. Procedure was well tolerated. The patient returned to the topete, sheath removed. ExoSeal device placed. FINDINGS: Left ventriculography in 30-degree KONG view: Normal wall motion and normal systolic function. CORONARY ANATOMY: LEFT MAIN: Left main is free of disease. LAD: LAD has a diffuse stenosis in mid portion of about 80%. Stenting to the diagonal is widely patent. CIRCUMFLEX: Huge left dominant system with circumflex gives rises to PDA, this is free of disease. RIGHT CORONARY ARTERY: Rudimentary with significant disease, but again this is a rudimentary vessel. IMPRESSION AND PLAN: Intervention to LAD momentarily. DESCRIPTION OF PROCEDURE: A 5-Icelandic sheath was exchanged for a 6-Icelandic sheath. XB LAD guiding catheter provided excellent guide catheter support followed by 300 cm whisper wire was placed across tightly occluded 80% stenosis to LAD down distal portion of vessel. Stent deployed was a 2.5 x 18 mm Integrity nondrug-eluting stent up to 14 atmospheres. Final angiography shows excellent resolution of 80% stenosis, no significant residual. EDUARDO flow 3 throughout the procedure. Heparin and Integrilin were used during the case. Effient was loaded in the lab due to difficulty with Plavix in the past. Sheath closed with ExoSeal device. TRANSINT:[id number] Voice Confirmation ID: [id number] DOCUMENT ID: [id number] SARAH PARKER MD CC: [id number] DICTATION DATE: 11/27/19 1411 PIPE WELDER: 11/27/19 2244 DEP CLI 11/27/19 [facility] [address] [place] [id number]
--- NOTE | ~2019-11-27 | HEMODYNAMI ---
PATIENT:VIDYA ANTONY MEDICAL RECORD: [id number] : 44 LOCATION:D.CAT ADMISSION DATE: 11/27/19 Generatedon:11/27/201914:08 Patient name: VIDYA ANTONY Patient #: [id number] SSN: [id number] : 1940 Date of study: 11/27/2019 Page: Of Hemodynamic Procedure Report Patient Data Patient Demographics Procedure consent was obtained First Name: VIDYA Gender: Male Last Name: CASSIA : 1940 [facility] Initial: C Age: 79 year(s) Patient #: [id number] Race: SSN: [id number] Additional ID: [id number] Contact details Address: [address] [place] [address] State: [place] City: [facility] Zip code: [address] Past Medical History Allergies Allergen Reaction Date Comments Reported Other 11/27/2019 BMCCVFI-REE-HUU-REDUCTASE allergy INHIBITOR, CLOPIDOGREL(PLAVIX) Admission Admission Data Admission Date: 11/27/2019 Admission Time: 10:58 Arrival Date: 11/27/2019 Arrival Time: 0:00 Admit Source: Other Insurance Payor: Private health insurance Height (in.): 70.08 BSA: 2.05 (m2) Height (cm.): 178 BMI: 27.46 (kg/m2) Weight (lbs.): 191.8 Weight (kg.): 87 Lab Results Lab Result Date: 11/27/2019 Lab Result Time: 0:00 Biochemistry Name Units Result Min Max BUN mg/dl 18 --(---*)-- 7 18 Creatinine mg/dl 0.9 --(-*--)-- 0.6 1.3 eGFR ml/min 87 -*(----)-- 90 120 NONAFRICAN CBC Name Units Result Min Max Hematocrit % 44.2 --(*---)-- 42 54 Hemoglobin g/dl 14.5 --(*---)-- 13.5 17.5 Procedure Procedure Types Cath Procedure Diagnostic Procedure [facility] w/Coronaries Sedation Charges Moderate Sedation up to 15 minutes PCI Procedure Coronary Stent Coronary Stent Initial Hemochron ACT Test Procedure Description Procedure Date Procedure Date: 11/27/2019 Procedure Start Time: 13:47 Procedure End Time: 14:06 Procedure Staff Name Function Carlos Vigil MD Performing Physician Chrissy Vivar RT Monitor Pauline Peña RN Nurse Cami Mar RT Scrub Procedure Data Cath Procedure Fluoroscopy Diagnostic fluoroscopy Total fluoroscopy Time: 2.7 time: 2.7 min min Diagnostic fluoroscopy Total fluoroscopy dose: 796 dose: 796 mGy mGy Contrast Material Contrast Material Type Amount (ml) Isovue 370 91 Entry Location Entry Primary Successful Side Size Upsize Upsize Entry Closure Succes sful Closure Location (Fr) 1 (Fr) 2 (Fr) Remarks Device Remarks Femoral Right 5 Fr 6 Fr Exoseal artery Short Estimated blood loss: 10 ml Diagnostic catheters Device Type Used For End Catheter Placement MULTIPACK JL 4.0 5Fr Procedure catheter MULTIPACK 3DRC 5Fr Procedure catheter MULTIPACK Pigtail 5 Fr Procedure catheter Procedure Complications No complications Procedure Medications Medication Administration Route Dosage Oxygen etCO2 Nasal cannula 2 l/min Lidocaine 2% added to field 20 Heparin Flush Bag added to field 2 bags (1000units/500ml NS) 0.9% NaCl I.V. 100 ml/hr Versed I.V. 1 mg Fentanyl I.V. 50 mcg Versed I.V. 1 mg Fentanyl I.V. 50 mcg Heparin Bolus I.V. 4000 units Integrilin (Bolus I.V. 7.9 ml 2mg/ml) Effient P.O. 60 mg Hemodynamics Rest BSA: 2.05 (m2) HGB: 14.5 (g/dl) O2 Consumption: Estimated: 230.33 (ml/min) O2 Co nsumption indexed: Estimated:112.36 (ml/min/m) Heart Rate: 64 (bpm) Pressure Samples Time Site Value (mmHg) Purpose Heart Use Rate(bpm) 13:52 LV 90/-31,3 Snapshot 66 Gradients Valve Time Site Site Mean SEP/DFP Peak To Heart Use 1 2 (mmHg) (sec/min) Peak Rate (mmHg) (bpm) Aortic 13:53 LV AO 55 Snapshots Pre Cath Intra NCS Post Cath Vital Signs Time Heart Resp SPO2 etCO2 NIBP (mmHg) Rhythm Pain Sedation Rate (ipm) (%) (mmHg) Status Level (bpm) 13:18:16 72 14 97 38.1 132/92(106) NSR 0 (11) 10(A) , No pain 13:23:45 62 10 98 0 149/104(115) NSR 0 (11) 10(A) , No pain 13:28:05 56 14 100 27.7 156/84(126) NSR 0 (11) 10(A) , No pain 13:32:28 55 15 100 8.2 138/82(104) NSR 0 (11) 10(A) , No pain 13:36:48 55 13 100 0 131/80(97) NSR 0 (11) 10(A) , No pain 13:41:06 54 11 100 1.4 133/75(101) NSR 0 (11) 10(A) , No pain 13:45:26 52 13 100 26.9 134/75(115) NSR 0 (11) 9(A) , No pain 13:49:42 54 12 100 0 124/80(97) NSR 0 (11) 9(A) , No pain 13:53:56 56 14 100 0.7 136/78(106) NSR 0 (11) 9(A) , No pain 13:58:12 56 16 100 23.2 130/74(107) NSR 0 (11) 9(A) , No pain 14:02:28 57 13 100 0.7 135/79(122) NSR 0 (11) 10(A) , No pain 14:06:44 59 11 100 23.9 148/88(103) NSR 0 (11) 10(A) , No pain Medications Time Medication Route Dose Verified Delivered Reason Notes Effectiveness by by 13:17:25 Oxygen etCO2 2 Carlos Carpenter used for Nasal l/min St Faheem Peña RN procedure cannula 13:20:21 Lidocaine 2% added 20ml Carlos Gonzalez for local to vial [facility] anesthetic field MD SAMUEL 13:20:32 Heparin Flush added 2 Carlos Carlos used for Bag to bags [facility] procedure (1000units/500ml field MD SAMUEL NS) 13:20:44 0.9% NaCl I.V. 100 Carlos Carpenter Per physician ml/hr St Faheem Peña RN, MD 13:40:38 Versed I.V. 1 mg Carlos Bragaie for sedation St Faheem Peña RN, MD 13:40:45 Fentanyl I.V. 50 Carlos Bragaie for sedation mcg St Faheem Peña RN, MD 13:47:22 Versed I.V. 1 mg Carlos Bragaie for sedation St Faheem Peña RN, MD 13:47:26 Fentanyl I.V. 50 Carlos Carpenter for sedation mcg St Faheem Peña RN, MD 13:54:49 Heparin Bolus I.V. 4000 Carlos Carpenter for verif ied units St Faheem Peña RN anticoagulation with dr MD garcia 13:56:31 Integrilin I.V. 7.9 Carlos Carpenter for waste d (Bolus 2mg/ml) ml St Faheem Peña RN antiplatelet 2.1 ml MD therapy of vial 14:06:11 Effient P.O. 60 mg Carlos [address] for St Faheem Peña RN antiplatelet therapy Procedure Log Time Note 12:24:43 Informed consent obtained and on chart 12:26:17 Arrival Date: 11/27/2019 12:00:00 AM 12:26:32 Insurance Payor : Private health insurance 12:29:27 Procedure Status Elective Heart Cath (OP). 12:29:32 Time tracking: Regular hours (M-F 7:00 - 5:00) 12:45:14 Stress Test: yes; abnormal inferior 12:49:56 H&P Date Dictated: 11/27/2019 H&P Addendum completed by physician on day of procedure. (MUST COMPLETE FOR ALL OUTPATIENTS), New H&P dictated by physician.. 12:55:07 Pauline Peña RN sent for patient. Start room use. 12:55:16 Plan of Care:Hemodynamics will remain stable., Cardiac rhythm will racquel in stable., Comfort level will be maintained., Respiratory function will remain adequate., Patient/ family verbilizes understanding of procedure., Procedure tolerated without complication., Recovers from procedure without complications.. 12:56:07 Lab Result : BUN 18 mg/dl 12:56:07 Lab Result : Creatinine 0.9 mg/dl 12:56:07 Lab Result : eGFR NONAFRICAN 87 ml/min 12:56:07 Lab Result : Hemoglobin 14.5 g/dl 12:56:07 Lab Result : Hematocrit 44.2 % 12:56:32 Patient Height : 70.08 inches 12:56:41 Patient Weight : 191.8 lbs 12:57:59 Patient allergic to Other fjhbmahUAVXFUS-QTJ-BTZ-REDUCTASE INHIBITOR, CLOPIDOGREL(PLAVIX) 12:58:08 Lab results completed and on chart. 12:59:38 Risk of Mortality: 0.1 12:59:41 Risk of blood transfusion: 0.1 12:59:45 Risk of GIO: 0.2 13:05:22 Admit Source: Other 13:05:31 Alarms reviewed by R. N. 13:05:32 Sharps counted by scrub and verified by R.N. 13:06:02 Patient received from Pre/Post Procedure Room to CCL 1 Alert and orient ed. Tansferred to table in Supine position. 13:06:03 Warm blankets applied, and sherita hugger turned on for patient comfort. 13:06:04 Correct patient and procedure confirmed by team. 13:06:04 ECG and BP/O2 sat monitors applied to patient. 13:06:06 Pre-procedure instructions explained to patient. 13:06:06 Pre-op teaching completed and patient verbalized understanding. 13:06:08 Family in waiting room. 13:06:09 Patient NPO since Midnight. 13:17:15 Vital chart was started 13:17:25 Oxygen 2 l/min etCO2 Nasal cannula was administered by Pauline Peña RN; used for procedure; Verbal order read back and verified. 13:20:21 Lidocaine 2% 20ml vial added to field was administered by Carlos Julio MD; for local anesthetic; Verbal order read back and verified. 13:20:32 Heparin Flush Bag (1000units/500ml NS) 2 bags added to field was admini stered by Carlos Vigil MD; used for procedure; Verbal order read back and verified. 13:20:44 0.9% NaCl 100 ml/hr I.V. was administered by Pauline Peña RN; Per physic jaime; Verbal order read back and verified. 13:22:45 Baseline sample Acquired. 13:22:48 Full Disclosure recording started 13:22:54 Rhythm: sinus rhythm 13:23:01 Is the patient allergic to Iodine/contrast media? No. 13:23:04 Is patient on blood thinner?No 13:23:06 Patient diabetic? No. 13:23:09 If diabetic: On Metformin? N/A 13:23:10 ----Pre-sedation anethsthesia assessment.---- 13:23:13 Previous problem with sedation/anesthesia? No ? 13:23:14 Snore? Yes 13:23:16 Sleep apnea? Unknown 13:23:17 Deviated septum? No 13:23:19 Opens mouth fully? Yes 13:23:19 Sticks out tongue? Yes 13:23:21 Airway obstruction? No ? 13:23:24 Dentures? No ? 13:23:28 Pre procedure: right dorsailis pedis pulse 2+ Normal; easily identifiab le; not easily obliterated 13:23:31 Patient pain scale 0/10 ?. 13:23:39 IV patent on arrival in right antecubital with 0.9% NaCl at [facility]. 13:23:44 Right groin area was prepped with chlora-prep and draped in sterile fas hion 13:23:47 Use device set Femoral Dx 13:23:49 ACIST Syringe (86995) opened to sterile field. 13:23:49 Bag Decanter (2002S) opened to sterile field. 13:23:50 Medline Cath Pack ([id number]) opened to sterile field. 13:23:51 ACIST Hand Control (55370) opened to sterile field. 13:23:51 ACIST Manifold (20113) opened to sterile field. 13:23:52 DIAGNOSTIC Multipack 5Fr catheter set ([id number]) opened to sterile field. 13:23:53 SHEATH 5FR [place] (WAD280) opened to sterile field. 13:23:54 EMERALD Guide Wire (777-885) opened to sterile field. 13:38:49 --------ALL STOP TIME OUT------ 13:38:50 Final Timeout: patient, procedure, and site verified with staff and rylee wang. All members of the team are in agreement. 13:38:51 Right groin site verified by team. 13:38:55 Fire Safety Assessment: A--An alcohol-based skin anteseptic being used preoperatively., C--Open oxygen or nitrous oxide is being used., D--An ESU, laser, or fiber-optic light is being used. 13:39:01 Physical assessment completed. ASA score P 2 - A patient with mild syst emic disease as per Carlos Vigil MD. 13:39:08 2) 60-89 Mildly reduced kidney function, and other findings (as for sta ge 1) point to kidney disease. 13:39:13 Maximum allowable contrast dose (3.7 X eGFR X 0.75)241 ml. 13:39:17 Sedation plan: IV Moderate Sedation Medication:Versed, Fentanyl 13:40:38 Versed 1 mg I.V. was administered by Pauline Peña RN; for sedation; Verb al order read back and verified. 13:40:45 Fentanyl 50 mcg I.V. was administered by Pauline Peña RN; for sedation; Verbal order read back and verified. 13:47:10 Procedure started. 13:47:16 Local anesthetic to right femoral artery with Lidocaine 2% by Carlos Siddiqui MD.INITIAL ACCESS ONLY 13:47:22 Versed 1 mg I.V. was administered by Pauline Peña RN; for sedation; Verb al order read back and verified. 13:47:26 Fentanyl 50 mcg I.V. was administered by Pauline Peña RN; for sedation; Verbal order read back and verified. 13:48:01 A 5 Fr sheath was inserted into the Right Femoral artery 13:48:31 A MULTIPACK JL 4.0 5Fr catheter was advanced over the wire and used for Procedure. 13:49:05 Injector settings: Ml/sec: 3, Volume: 6, 13:49:08 LCA angiography performed. 13:50:13 Catheter removed. 13:50:19 A MULTIPACK 3DRC 5Fr catheter was advanced over the wire and used for Procedure. 13:50:45 RCA angiography performed. 13:51:00 Injector settings: Ml/sec: 3, Volume: 6, 13:51:27 ACCDominant side:Left 13:51:31 Catheter removed. 13:51:55 A MULTIPACK Pigtail 5 Fr catheter was advanced over the wire and used f or Procedure. 13:52:[address] SIDDIQUI PCI 13:52:14 LV gram done using KONG 13:52:37 Injector settings: Ml/sec: 5, Volume: 15, 13:52:39 LV hemodynamics recorded. 13:52:46 EF : 55 % 13:53:03 Catheter removed. 13:53:04 Proceeding to intervention. 13:53:13 -ADVANC ED 13:53:24 Pre PCI Site: [place] mLAD has 80% stenosis. 13:53:53 GUIDE 6FR XBLAD 3.5 catheter ([id number]) opened to sterile field. 13:53:54 WHISPER 300cm guide wire ([id number]) opened to sterile field. 13:53:56 SHEATH 6FR [place] (VHG475) opened to sterile field. 13:53:58 INFLATOR Merit BasixCompak (EL9545) opened to sterile field. 13:54:35 Sheath upsized to a 6 Fr Short. 13:54:44 6 Fr XBLAD 3.5 guide catheter was inserted over the wire 13:54:49 Heparin Bolus 4000 units I.V. was administered by Pauline Peña RN; for anticoagulation; verified with dr garcia Verbal order read back and verified. 13:56:31 Integrilin (Bolus 2mg/ml) 7.9 ml I.V. was administered by Pauline Peña R N; for antiplatelet therapy; wasted 2.1 ml of vial Verbal order read back and verified. 13:57:18 WHISPER 300 wire advanced. 14:00:06 Place stent Inflation Number: 1 A INTEGRITY OTW 2.5 X 18 stent ([id number]) was prepped and advanced across the Mid LAD 80. The stent was deployed at 14 JOHNSON for 0:00 (min:sec) . 14:00:30 Stent catheter was removed intact over wire. 14:00:31 Wire removed. 14:00:31 Guide catheter removed. 14:00:34 EXOSEAL 6Fr (EX600) opened to sterile field. 14:00:57 Sheath removed intact; hemostasis achieved with Exoseal to the Right Fe moral artery. 14:01:27 Procedure ended.(Physican Out) 14:01:32 Fluoroscopy time 02.70 minutes. 14:01:35 Flurop Dose total: 796 14:01:35 Fluoroscopy dose: 796 mGy 14:01:40 Dose Area Product 46870 mGy/cm. 14:01:45 Contrast amount:Isovue 370 91ml. 14:01:48 Maximum allowable dose exceeded? No. 14:01:49 Sharps counted by scrub and verified by R.N. 14:01:54 Post-op/insertion site Right Femoral artery dressed using a 4 x 4 and Tegaderm. 14:01:59 Post right femoral artery:stable, soft, clean and dry 14:02:01 Post Procedure Pulses reassessed and unchanged 14:02:03 Post procedure: right dorsailis pedis pulse 2+ Normal; easily identifia ble; not easily obliterated. 14:02:07 Post-procedure physical assessment completed. ASA score P 2 - A patient with mild systemic disease as per Carlos Vigil MD. 14:02:10 Post procedure rhythm: unchanged. 14:02:13 Estimated blood loss: 10 ml 14:02:36 Post procedure instruction explained to patient.Patient verbalizes understanding. 14:02:37 Patient needs reinforcement of post procedure teaching. 14:02:57 Procedure type changed to Cath procedure, Diagnostic procedure, C, C w/Coronaries, Sedation Charges, Moderate Sedation up to 15 minutes, PCI procedure, Coronary Stent, Coronary Stent Initial, Hemochron ACT Test 14:03:17 Procedure and supply charges have been captured, reviewed, submitted an d are correct. 14:03:21 Procedure Complication : No complications 14:03:26 [facility] Findings: MVD- PCI performed (see procedure note) 14:03:30 Operative report dictated upon procedure completion. 14:03:31 See physician's report for complete and final results. 14:03:35 ACC-PCI Only Patient was given prescriptions, or instructed by Willy Vigil MD to start/continue the following medications upon discharge: Effient 14:04:09 Report given to Pre/Post Procedure Room. 14:05:58 ACT drawn and resulted at 278 seconds. (normal therapeutic range 180-24 0 seconds). 14:06:00 Vital chart was stopped 14:06:04 Patient transfered to Pre/Post Procedure Room with Stretcher. 14:06:07 Procedure ended. 14:06:07 Full Disclosure recording stopped 14:06:11 Effient 60 mg P.O. was administered by Pauline Peña RN; for antiplatelet therapy; Verbal order read back and verified. 14:06:21 End room use (Document Last) 14:06:35 End room use (Document Last) 14:06:52 End room use (Document Last) Intervention Summary Intervention Notes Time ActionType Lesion and Equipment Action# Pressure Duration Attributes Used 14:00:06 Place stent Mid LAD INTEGRITY 1 14 00:00 OTW 2.5 X 18 stent ([id number]) Device Usage Item Name Manufacture Quantity Catalog Hospital Part Current Minimal L ot# / Number Charge Number Stock Stock Serial# Code ACIST Acist 1 29731 108490 904616 990146 20 Syringe Medical (40277) Systems Inc Bag Microtek 1 2001S 218599 49100 660668 5 Decanter Medical Inc. () Medline Medline 1 [id number] 177851 91559 561296 5 Cath Pack ([id number]) ACIST Hand Acist 1 07016 860960 682910 532991 5 Control Medical (81782) Systems Inc ACIST Acist 1 88881 719930 210641 091057 5 Manifold Medical (26344) Systems Inc DIAGNOSTIC Cardinal 1 SP1365 265025 06023 351336 30 Multipack Health 5Fr catheter set (HG9183) SHEATH 5FR Terumo 1 MOI345 156493 820790 850234 5 [place] (MMZ956) EMERALD Cardinal 1 502-455 957728 906416 967577 5 Guide Wire Health (502-455) MULTIPACK Cardinal 1 786795 5 JL 4.0 5Fr Health catheter MULTIPACK Cardinal 1 163428 5 3DRC 5Fr Health catheter MULTIPACK Cardinal 1 719399 5 Pigtail 5 Health Fr catheter GUIDE 6FR Cardinal 1 [id number] 222142 645271 419370 10 XBLAD 3.5 Health catheter (21614733) WHISPER Singh 1 [id number] 634720 239436 960281 5 300cm guide Vascular wire ([id number]) SHEATH 6FR Terumo 1 TRZ020 282240 086040 541318 40 [place] (JFY840) INFLATOR Merit 1 JV8320 738442 207237 053613 15 [facility] Medical BasixCompak (XD0728) INTEGRITY Medtronic 1 [id number] 917868 160326 266097 1 0 [id number] OTW 2.5 X 18 stent ([id number]) EXOSEAL 6Fr Cardinal 1 EX600 510765 050271 864219 10 (EX600) Health Signature Audit [place] Stage Time Signature Unsigned Intra-Procedure 11/27/2019 Cami Mar 2:06:35 PM RT(R) Intra-Procedure 11/27/2019 Pauline Peña RN 2:06:52 PM Intra-Procedure 11/27/2019 Carlos Hough 2:08:30 PM Faheem [place]UEL [address] [place] [address]
[2019-11-27 12:15] VITALS: BP 139/81; Ht 177.8 cm; Wt 87.0 kg
[2019-11-27 12:24] LABS: BASOPHILS 0.4 % (0-2); EOSINOPHILS 3.1 % (0-7); HEMATOCRIT 44.2 % (42.0-54.0); HEMOGLOBIN 14.5 g/dL (13.5-17.5); IMMATURE GRANULOCYTES 0.2 % (0-5); LYMPHOCYTES 34.4 % (15-50); MCH 30.1 pg (26.0-34.0); MCHC 32.8 g/dL (31.0-37.0); MCV 91.7 fL (80.0-100.0); MEAN PLATELET VOLUME 9.2 fL (7.4-10.4); MONOCYTES 12.7 % (2-11); NEUTROPHILS 49.2 % (40-80); PLATELET COUNT 177 10x3/uL (130-400); RBC 4.82 10x6/uL (4.20-6.10); RDW 13.5 % (11.5-14.5); WBC 5.1 10x3/uL (4.8-10.8)
[2019-11-27 12:49] LABS: ALT (SGPT) 56 U/L (10-68); CALC OSMOLALITY 281 mosm/kg (275-300); CALCIUM 8.8 mg/dL (8.5-10.1); CARBON DIOXIDE 27.8 mmol/L (21.0-32.0); CHLORIDE - SERUM 105 mmol/L (98-107); CHOL - HDL RATIO 2.6 ratio (2.3-4.9); CHOLESTEROL, TOTAL 129 mg/dL (0-200); CREATININE - SERUM 0.9 mg/dL (0.6-1.3); GLUCOSE 110 mg/dL (74-106); HDL CHOLESTEROL 50 mg/dL (32-96); LDL CHOLESTEROL 65 mg/dL (0-100); LDL-HDL RATIO 1.3 ratio (1.5-3.5); POTASSIUM - SERUM 4.2 mmol/L (3.5-5.1); SODIUM 140 mmol/L (136-145); TRIGLYCERIDE 73 mg/dL (30-200); UREA NITROGEN 18 mg/dL (7-18); eGFR NON AFRICAN AMERICAN 87 mL/min (90-120)
--- NOTE | 2019-11-27 14:25 | NUR ---
PT RECEIVED VIA STRETCHER FROM SHOW JUMPING INSTRUCTOR FOR RECOVERY. PT DROWSY, VERBALLY AROUSABLE. PT DENIES PAIN OR DISCOMFORT. R GROIN W 6FR EXOCELE, DRESSING CDI NO S/S HEMATOMA OR BLEEDING. EXTREMITY WARM AND PINK, PEDAL PULSES PALPABLE. PT INSTRUCTED TO KEEP HEAD FLAT ON PILLOW AND R LEG STRAIGHT, HE VERBALIZED UNDERSTANDING. IV PATENT INFUSING VIA ORDERS. PT PLACED ON CARDIAC MONITORS AND O2 VIA NC AT 2L. HR SB RATE 58, BP 148/75, RR 21, SAT 100. CALL LIGHT IN REACH, AT BS
[2019-11-27] MEDS ORDERED: EFFIENT10 MG PO (14:28)
[2019-11-27] MEDS ORDERED: BAYER CHEWABLE81 MG PO (14:29)
--- NOTE | 2019-11-27 14:48 | NUR ---
PT RESTING COMFORTABLY. R GROIN SOFT, DRESSING REMAINS CDI NO S/S HEMATOMA NOTED. PEDAL PULSES PALPABLE. PT VOIDED 250 CC CLEAR YELLOW URINE VIA URINAL. CALL LIGHT IN REACH, AT BS
--- NOTE | 2019-11-27 15:30 | NUR ---
PT RESTING COMFORTABLY. R GROIN SOFT, DRESSING CDI NO S/S HEMATOMA NOTED. VSS. CALL LIGHT IN REACH. TOLERATING PO FLUIDS.
--- NOTE | 2019-11-27 16:03 | NUR ---
R GROIN SOFT, DRESSING CDI NO S/S HEMATOMA OR BLEEDING. VSS. AT BS
--- NOTE | 2019-11-27 16:30 | NUR ---
R GROIN SOFT, DRESSING CDI NO S/S HEMATOMA OR BLEEDING NOTED. VSS. CALL LIGHT IN REACH, AT BS
--- NOTE | 2019-11-27 16:56 | NUR ---
PT DOING WELL, R GROIN SOFT, DRESSING REMAINS CDI NO S/S HEMATOMA NOTED. HOB ELEVATED, SANDWICH AND DRINK SERVED. VSS. CALL LIGHT IN REACH
--- NOTE | 2019-11-27 17:24 | NUR ---
GROIN REMAINS SOFT, NO S/S HEMATOMA. PT TOLERATED SANDWICH AND DRINK W/O DIFFICULITY. HR 59, BP 161/88, RR 14, SAT 99 ON ROOM AIR. O2 REMOVED. CALL LIGHT IN REACH
--- NOTE | 2019-11-27 17:45 | NUR ---
DISCHARGE INSTRUCTIONS REVIEWED W PT AND , DISCUSSED MEDICATIONS AND ADDITION OF EFFIENT AND ASA. BOTH VERBALIZED UNDERSTANDING. IV REMOVED W CATH INTACT, MONITORS REMOVED. PT UP TO DRESS FOR DISCHARGE. GROIN SOFT, NO S/S HEMATOMA OR BLEEDING
--- NOTE | 2019-11-27 17:50 | NUR ---
PT AMBULATED TO BR, VOIDING W/O DIFFICULITY.
--- NOTE | 2019-11-27 18:01 | NUR ---
PT DISCHARGED VIA WC TO WAITING IN PRIVATE VEHICLE. PT HAD ALL BELONGINGS AND DISCHARGE PAPERWORK
== END 2019-11-27 18:00 | disposition home or self-care (01) ==
LOC: D.CATH 10:58
PROVIDERS: ATTEND Internal Medicine Interventional Cardiology
DX: I25.119 Atherosclerotic heart disease of native coronary artery with unspecified angina pectoris (principal); I10 Essential (primary) hypertension; E78.5 Hyperlipidemia, unspecified; Z86.73 Personal history of transient ischemic attack (TIA), and cerebral infarction without residual deficits

== ENCOUNTER 2019-12-09 18:48 | Inpatient (IN) | payer MEDICARE ==
[~2019-12-09] VITALS: Ht 175.3 cm; Wt 86.2 kg
[~2019-12-09 18:48] MED LIST changes: +BAYER CHEWABLE81 MG PO
[2019-12-09 19:35] LABS: BASOPHILS 0.6 % (0-2); EOSINOPHILS 4.4 % (0-7); HEMATOCRIT 44.9 % (42.0-54.0); HEMOGLOBIN 14.8 g/dL (13.5-17.5); LYMPHOCYTES 41.2 % (15-50); MCH 30.3 pg (26.0-34.0); MCV 91.8 fL (80.0-100.0); MEAN PLATELET VOLUME 9.4 fL (7.4-10.4); MONOCYTES 10.5 % (2-11); NEUTROPHILS 43.3 % (40-80); PLATELET COUNT 187 10x3/uL (130-400); RBC 4.89 10x6/uL (4.20-6.10); RDW 13.5 % (11.5-14.5)
[2019-12-09 19:43] LABS: APTT 25.7 SECONDS (22.8-39.4); INR 1.02 (0.85-1.17); PROTIME 13.3 SECONDS (11.6-15.0)
[2019-12-09 19:44] LABS: CALC OSMOLALITY 282 mosm/kg (275-300); CALCIUM 8.3 mg/dL (8.5-10.1); CARBON DIOXIDE 28.3 mmol/L (21.0-32.0); CHLORIDE - SERUM 103 mmol/L (98-107); POTASSIUM - SERUM 3.9 mmol/L (3.5-5.1); SODIUM 138 mmol/L (136-145); UREA NITROGEN 17 mg/dL (7-18); eGFR NON AFRICAN AMERICAN 77 mL/min (90-120)
[2019-12-09 19:49] LABS: GLUCOSE 181 mg/dL (74-106)
[2019-12-09 19:59] LABS: ALKALINE PHOSPHATASE 68 U/L (30-120); ALT (SGPT) 58 U/L (10-68); BILIRUBIN - TOTAL 0.44 mg/dL (0.2-1.3); LIPASE 101 U/L (73-393); MAGNESIUM - SERUM 2.1 mg/dL (1.8-2.4); PRO BNP 27 pg/mL (0-450); PROTEIN - SERUM 7.3 g/dL (6.4-8.2); THYROID STIMULATING HORMONE 1.95 uIU/mL (0.36-3.74)
[2019-12-09 20:00] LABS: TROPONIN-I < 0.017 ng/mL (0.000-0.060)
--- NOTE | 2019-12-09 22:20 | NUR ---
ASSUMED CARE OF PATIENT, PATIENT TRANSFERRED FROM ER VIA W/C, PT AAOX4, RESP EVEN AND NON LABORED, RA, HL TO RIGHT HAND, ADMISSION ASSESSMENT COMPLETED, SPOUSE AT BEDSIDE, DENIES NEEDS AT THIS TIME, WILL CONTINUE TO MONITOR PATIENT
[2019-12-09 22:30] VITALS: BP 120/75; BMI 28.2
[2019-12-10 04:00] VITALS: BP 120/68
[2019-12-10 08:00] VITALS: BP 111/74
[2019-12-10 09:47] LABS: BASOPHILS 0.2 % (0-2); EOSINOPHILS 3.9 % (0-7); HEMATOCRIT 44.8 % (42.0-54.0); HEMOGLOBIN 14.8 g/dL (13.5-17.5); IMMATURE GRANULOCYTES 0.2 % (0-5); LYMPHOCYTES 37.6 % (15-50); MCH 30.3 pg (26.0-34.0); MCV 91.6 fL (80.0-100.0); MEAN PLATELET VOLUME 9.6 fL (7.4-10.4); MONOCYTES 7.1 % (2-11); PLATELET COUNT 178 10x3/uL (130-400); RBC 4.89 10x6/uL (4.20-6.10); RDW 13.6 % (11.5-14.5); WBC 4.7 10x3/uL (4.8-10.8)
[2019-12-10 10:18] LABS: ALBUMIN 3.9 g/dL (3.4-5.0); ALKALINE PHOSPHATASE 65 U/L (30-120); ALT (SGPT) 61 U/L (10-68); BILIRUBIN - TOTAL 0.79 mg/dL (0.2-1.3); CALC OSMOLALITY 279 mosm/kg (275-300); CALCIUM 8.4 mg/dL (8.5-10.1); CARBON DIOXIDE 29.4 mmol/L (21.0-32.0); CHLORIDE - SERUM 104 mmol/L (98-107); CHOL - HDL RATIO 2.6 ratio (2.3-4.9); CHOLESTEROL, TOTAL 118 mg/dL (0-200); CKMB 1.1 U/L (0.0-3.6); CREATINE KINASE 166 UL (21-232); GLUCOSE 190 mg/dL (74-106); HDL CHOLESTEROL 45 mg/dL (32-96); LDL CHOLESTEROL 50 mg/dL (0-100); LDL-HDL RATIO 1.1 ratio (1.5-3.5); POTASSIUM - SERUM 4.2 mmol/L (3.5-5.1); PROTEIN - SERUM 7.1 g/dL (6.4-8.2); SODIUM 137 mmol/L (136-145); TRIGLYCERIDE 118 mg/dL (30-200); UREA NITROGEN 15 mg/dL (7-18); eGFR NON AFRICAN AMERICAN 77 mL/min (90-120)
[2019-12-10 10:20] LABS: TROPONIN-I < 0.017 ng/mL (0.000-0.060)
[2019-12-10 12:25] VITALS: BP 126/65
--- NOTE | 2019-12-10 13:48 | NUR ---
SPOKE WITH DR. DENG. STATED HE DIDNT NEED EKG X 3. PATIENT HAD EKG IN ER ON ARRIVAL AT 1953 LAST NIGHT AND WAS NORMAL SINUS. PATIENT ON TELE. NORMAL SINUS WITH NO PROBLEMS AT THIS TIME. PATIENT IN BED WITH CALL LIGHT WITHIN REACH,
[2019-12-10 15:57] LABS: BILIRUBIN NEGATIVE (NEGATIVE); GLUCOSE NEGATIVE (NEGATIVE); KETONE NEGATIVE (NEGATIVE); NITRITE NEGATIVE (NEGATIVE); SPECIFIC GRAVITY 1.015 (1.005-1.020); UROBILINOGEN NORMAL (NORMAL)
--- NOTE | 2019-12-10 16:23 | NUR ---
PATIENTS 20 G IV STARTED IN RIGHT AC X [address] WITH CONTRAST.
[2019-12-10 16:26] LABS: CKMB 0.9 U/L (0.0-3.6); CREATINE KINASE 185 UL (21-232)
[2019-12-10 16:29] LABS: TROPONIN-I < 0.017 ng/mL (0.000-0.060)
[2019-12-10 16:56] VITALS: BP 141/78
--- NOTE | 2019-12-10 19:00 | NUR ---
BEDSIDE REPORT RECEIVED AND CARE OF PT ASSUMED. PT AMBULATING IN THE HALLWAY AT THIS TIME. IV TO RIGHT HAND AND RIGHT AC SALINE LOCKED. WILL MONTOR FOR NEEDS.
--- NOTE | 2019-12-10 19:00 | NUR ---
BEDSIDE REPORT RECEIVED AND CARE OF PT ASSUMED. PT LYING IN SUPINE POSITION WITH EYES CLOSED. IV TO RIGHT FA PATENT WITH NS INFUSING AT 125 ML/HR. WILL MONITOR FOR NEEDS.
[2019-12-10 20:00] VITALS: BP 118/65
--- NOTE | 2019-12-10 20:10 | NUR ---
HS MEDICATIONS GIVEN. FSBS 184 THIS CHECK REQUIRING COVERAGE WITH 4 UNITS OF HUMALOG PER SLIDING SCALE.
[2019-12-10 22:03] LABS: CKMB 1.2 U/L (0.0-3.6)
[2019-12-10 22:08] LABS: CREATINE KINASE 237 UL (21-232); TROPONIN-I < 0.017 ng/mL (0.000-0.060)
--- NOTE | 2019-12-11 01:55 | NUR ---
CALLED DR HENDERSON TO ADVISE OF CONSULT AND TO UPDATE ON PT CONDITION. HE INCREASED KEPPRA NOW DOSE TO 1000 MG...CE NOTIFIED. PT BEING MOVED TO ICU...AWAITING BED.
--- NOTE | 2019-12-11 02:23 | NUR ---
RE-SITED IV TO RIGHT AC USING 20 GUAGE CATHETER, PT PULLED ON OTHER IV AND IS NOW LEAKING. RE-STARTED IV FLUIDS AND STARTED KEPPRA 1000 MG IVP PER NEW ORDER.
[2019-12-11 06:13] LABS: BASOPHILS 0.4 % (0-2); EOSINOPHILS 4.1 % (0-7); HEMATOCRIT 46.7 % (42.0-54.0); HEMOGLOBIN 15.3 g/dL (13.5-17.5); IMMATURE GRANULOCYTES 0.2 % (0-5); LYMPHOCYTES 32.8 % (15-50); MCH 30.1 pg (26.0-34.0); MCHC 32.8 g/dL (31.0-37.0); MCV 91.7 fL (80.0-100.0); MEAN PLATELET VOLUME 9.6 fL (7.4-10.4); MONOCYTES 12.6 % (2-11); NEUTROPHILS 49.9 % (40-80); PLATELET COUNT 201 10x3/uL (130-400); RBC 5.09 10x6/uL (4.20-6.10); RDW 13.6 % (11.5-14.5); WBC 5.3 10x3/uL (4.8-10.8)
[2019-12-11 07:00] LABS: ALBUMIN 4.3 g/dL (3.4-5.0); BILIRUBIN - TOTAL 0.73 mg/dL (0.2-1.3); CALCIUM 9.3 mg/dL (8.5-10.1); CARBON DIOXIDE 28.9 mmol/L (21.0-32.0); CREATININE - SERUM 1.1 mg/dL (0.6-1.3); POTASSIUM - SERUM 3.9 mmol/L (3.5-5.1); PROTEIN - SERUM 7.6 g/dL (6.4-8.2)
[2019-12-11 08:35] VITALS: BP 158/78
[2019-12-11 11:18] VITALS: BMI 28.2
[2019-12-11 13:03] VITALS: BP 155/87
[2019-12-11 18:42] VITALS: BP 151/105
--- NOTE | 2019-12-11 18:52 | NUR ---
PATIENT SITTING IN BED. FAMILY IN THE ROOM. DENIES NEEDS OR PAIN. WILL CONTINUE TO MONITOR.
[2019-12-11 20:00] VITALS: BP 123/69
[2019-12-12 04:00] VITALS: BP 91/61
[2019-12-12 05:54] LABS: BASOPHILS 0.5 % (0-2); HEMATOCRIT 44.2 % (42.0-54.0); HEMOGLOBIN 14.6 g/dL (13.5-17.5); LYMPHOCYTES 36.8 % (15-50); MCH 30.3 pg (26.0-34.0); MCV 91.7 fL (80.0-100.0); MEAN PLATELET VOLUME 9.8 fL (7.4-10.4); MONOCYTES 12.5 % (2-11); NEUTROPHILS 46.2 % (40-80); PLATELET COUNT 176 10x3/uL (130-400); RBC 4.82 10x6/uL (4.20-6.10); RDW 13.4 % (11.5-14.5)
[2019-12-12 06:28] LABS: ALBUMIN 3.7 g/dL (3.4-5.0); ANION GAP 9.8 mmol/L (8-16); BILIRUBIN - TOTAL 0.65 mg/dL (0.2-1.3); CALCIUM 8.9 mg/dL (8.5-10.1); CREATININE - SERUM 1.1 mg/dL (0.6-1.3); POTASSIUM - SERUM 3.8 mmol/L (3.5-5.1)
--- NOTE | 2019-12-12 08:00 | NUR ---
PATIENT IN BED WITH IV INTACT. NO COMPLAINTS OR SIGNS OF DISTRESS. SITTING UP IN BED WITH CALL LIGHT WITHIN REACH.
[2019-12-12 08:44] VITALS: BP 133/76
--- NOTE | 2019-12-12 09:22 | EC ---
PATIENT:VIDYA ANTONY DATE OF SERVICE: 12/10/19 SEX: M MEDICAL RECORD: [id number] DATE OF : 44 LOCATION:D.MS [place] AGE OF PATIENT: 79 ADMISSION DATE: 12/10/19 REFERRING PHYSICIAN: INTERPRETING PHYSICIAN: VANESA KRAUSE MD ECHOCARDIOGRAM REPORT ECHO CHARGES 4 ECHO COMPLETE Date: 12/10/19 CLINICAL DIAGNOSIS: TIA VS CVA ECHOCARDIOGRAPHIC MEASUREMENTS (adult normal given) AC root (d.<3.7cm) 2.9 cm LV Septum d (<1.2 cm> 1.1 cm Valve Excursion 1.4 cm LV Septum (systole) 1.2 cm Left Atria (s.<4.0cm> 3.2 cm LVPW d(<1.2cm) 1.0 cm RV (d.<2.3cm) 3.4 cm LVPW (sytole) 1.1 cm LV diastole(<5.6CM) 5.0 cm MV E-F(>70mm/sec) cm LV systole 4.1 cm LVOT Diameter 1.6 cm MV exc.(>10mm) cm Est.ejection fraction (50-75%) % DOPPLER: LVIT cm/sec A 88 cm/sec E 57 cm/sec LA cm/sec RVSP 15.0 mmHg LVOT 97 cm/sec AOP1/2T m/s Asc. Ao 173 cm/sec RVOT 53 cm/sec RA cm/sec PA 55 cm/sec AV Gradient Peak 12.0 mmHg AV Mean 6.5 mmHg AV Area 1.3 cm MV Gradient Peak 3.7 mmHg MV Mean 1.3 mmHg MV Area cm COMMENTS: Chemical Unit Operator: Emily ROGERS Cable Installation Technician: Ramy Krause TAPE# PACS Pericardial Effusion N DATE OF SERVICE: PROCEDURE: Transthoracic echocardiogram. FINDINGS: 1. Left ventricle was difficult to visualize, but the ejection fraction appears to be normal. There appears to be mild left ventricular hypertrophy. 2. Left atrium is normal size; shape, structure, and function. 3. Mitral valve not well visualized. There is trace mitral regurgitation. 4.. Tricuspid valve has normal structure and function. The RVSP is normal. ECHOCARDIOGRAM REPORT [id number] VIDYA ANTONY 5. The pericardium appears to be normal. 6. The right ventricle is mildly dilated. 7. The right atrium is normal size, structure and function. 8. Pulmonic valve appears to be normal. TRANSINT:[id number] Voice Confirmation ID: [id number] DOCUMENT ID: [id number] VANESA KRAUSE MD at 0922 CC: [id number] DICTATION DATE: 12/11/19 1033 PLASTICS SCIENTIST: 12/11/19 1114 ADM IN [facility] [address] [place] [address]
[2019-12-12 09:34] LABS: APTT 29.7 SECONDS (22.8-39.4); INR 1.01 (0.85-1.17); PROTIME 13.3 SECONDS (11.6-15.0)
[2019-12-12 12:54] VITALS: BP 133/73
[2019-12-12 14:50] VITALS: Ht 175.3 cm; Wt 86.2 kg
--- NOTE | 2019-12-12 15:54 | NUR ---
PATIENT COMPLAINING THAT IV IS HURTING IN RIGHT TOP WRIST AREA. PATIENT HAS BEEN WRITING WHICH IS BENDING WHERE THE IV IS. FLUSHED AND BLOOD DRAWN BACK FROM IV WITH NO PROBLEMS. IV STILL IN VEIN. DOES LOOK LIKE A SMALL AMOUNT OF SWELLING IN WRIST. EXPLAINED TO PATIENT THAT IV IS STILL IN VEIN BUT IF IT IS BOTHERING HIM AND HE WANTS TO CONTINUE TO WRITE I CAN MOVE IT TO THE OTHER HAND. PATIENT STATED HE DID NOT WANT IT CHANGED AT THIS TIME. ICE PACK PLACED TO ARM. PATIENT STATED HE WOULD NOT WRITE ANYMORE AT THIS TIME. FAMILY AT BEDSIDE. CALL LIGHT WITHIN REACH.
[2019-12-12 16:54] VITALS: BP 110/64
--- NOTE | 2019-12-12 18:50 | NUR ---
IV MOVED TO RIGHT ARM INSTEAD OF WRIST. PATIENT STATED IT IS HURTING. EXPLAINED THAT I COULD MOVE IT SO THAT HE DOESNT HAVE TO WORRY ABOUT IT BOTHERING WHILE HE IS TRYING TO SLEEP TONIGHT. VERBALIZED UNDERSTANDING. RIGHT WRIST IV REMOVED WITH CATH TIP INTACT. CALL LIGHT WITHIN REACH.
[2019-12-12 20:00] VITALS: BP 137/79
[2019-12-13] VITALS: BP 144/78
[2019-12-13 04:00] VITALS: BP 116/76
[2019-12-13 05:04] LABS: BASOPHILS 0.3 % (0-2); EOSINOPHILS 3.4 % (0-7); HEMATOCRIT 43.6 % (42.0-54.0); HEMOGLOBIN 14.4 g/dL (13.5-17.5); IMMATURE GRANULOCYTES 0.2 % (0-5); LYMPHOCYTES 29.9 % (15-50); MCH 30.1 pg (26.0-34.0); MEAN PLATELET VOLUME 9.5 fL (7.4-10.4); MONOCYTES 13.2 % (2-11); PLATELET COUNT 170 10x3/uL (130-400); RBC 4.79 10x6/uL (4.20-6.10); RDW 13.3 % (11.5-14.5)
--- NOTE | 2019-12-13 05:23 | NUR ---
I have reviewed this patient and I concur with the Shift Assessment completed by the Licensed Practical Nurse today this shift.
[2019-12-13 05:24] LABS: WBC 6.2 10x3/uL (4.8-10.8)
[2019-12-13 05:41] LABS: ALBUMIN 3.7 g/dL (3.4-5.0); ANION GAP 9.4 mmol/L (8-16); BILIRUBIN - TOTAL 0.74 mg/dL (0.2-1.3); CALCIUM 8.7 mg/dL (8.5-10.1); CARBON DIOXIDE 29.6 mmol/L (21.0-32.0); CREATININE - SERUM 1.1 mg/dL (0.6-1.3)
--- NOTE | 2019-12-13 08:15 | NUR ---
AM MEDS. ASSESSMENT PER FLOW SHEET. PATIENT IS WITHOUT DISTRESS. HAS BEEN UP IN ROOM.MONITOR FOR NEEDS.CALL LIGHT IN REACH
[2019-12-13 08:40] VITALS: BP 125/67
--- NOTE | 2019-12-13 12:26 | NUR ---
URINE HAS BEEN SENT TO LAB ORDERED. EKG TO CHART. PATIENT WITHOUT NEEDS.
[2019-12-13 12:34] LABS: BILIRUBIN NEGATIVE (NEGATIVE); GLUCOSE 100 mg/dL (NEGATIVE); KETONE NEGATIVE (NEGATIVE); NITRITE NEGATIVE (NEGATIVE); SPECIFIC GRAVITY 1.015 (1.005-1.020)
[2019-12-13 12:41] VITALS: BP 134/77
--- NOTE | 2019-12-13 13:01 | NUR ---
Nutrition follow-up: Diet: Low sodium PO intake 100% of most meals Labs reviewed WT: 190# +BM Pt scheduled for carotid endarterectomy 12/13 and will be NPO for several meals RDN following.
[2019-12-13 14:11] LABS: HEMATOCRIT 43.9 % (42.0-54.0); HEMOGLOBIN 14.7 g/dL (13.5-17.5); MCH 30.6 pg (26.0-34.0); MCHC 33.5 g/dL (31.0-37.0); MCV 91.3 fL (80.0-100.0); MEAN PLATELET VOLUME 9.3 fL (7.4-10.4); RBC 4.81 10x6/uL (4.20-6.10); RDW 13.3 % (11.5-14.5)
[2019-12-13 14:46] LABS: INR 1.02 (0.85-1.17); PROTIME 13.3 SECONDS (11.6-15.0)
[2019-12-13 14:47] LABS: APTT 99.1 SECONDS (22.8-39.4)
[2019-12-13 16:21] VITALS: BP 121/66
--- NOTE | 2019-12-13 18:47 | NUR ---
REMAINS WITHOUT NEEDS.CONT PLAN OF CARE
[2019-12-13 20:00] VITALS: BP 125/71
--- NOTE | 2019-12-13 20:00 | NUR ---
PATIENT RESTING IN BED READING BOOK. NO S/S OF ACUTE DISTRESS. NO C/O AT THIS TIME. PATIENT HAS A RIGHT FOREARM IV, HEPARIN @ 11 ML/HR. IV IS PATENT WITHOUT REDNESS, SWELLING, OR TENDERNESS. PATIENT HAS TELEMETRY ON: 69 NORMAL SINUS. PATIENT WEARS GLASSES AND HEARING AIDS. CALL LIGHT WITHIN REACH. WILL CONTINUE TO MONITOR.
[2019-12-14] VITALS (17 sets, daily range): BP systolic 106–138; BP diastolic 52–80
[2019-12-14 05:02] LABS: BASOPHILS 0.2 % (0-2); EOSINOPHILS 3.7 % (0-7); HEMATOCRIT 43.5 % (42.0-54.0); HEMOGLOBIN 14.3 g/dL (13.5-17.5); IMMATURE GRANULOCYTES 0.2 % (0-5); LYMPHOCYTES 45.3 % (15-50); MCH 30.2 pg (26.0-34.0); MCHC 32.9 g/dL (31.0-37.0); MCV 91.8 fL (80.0-100.0); MEAN PLATELET VOLUME 9.5 fL (7.4-10.4); NEUTROPHILS 37.6 % (40-80); PLATELET COUNT 175 10x3/uL (130-400); RBC 4.74 10x6/uL (4.20-6.10); RDW 13.4 % (11.5-14.5); WBC 5.2 10x3/uL (4.8-10.8)
[2019-12-14 05:30] LABS: ALBUMIN 3.8 g/dL (3.4-5.0); ANION GAP 10.7 mmol/L (8-16); BILIRUBIN - TOTAL 0.57 mg/dL (0.2-1.3); CARBON DIOXIDE 28.5 mmol/L (21.0-32.0); CREATININE - SERUM 1.1 mg/dL (0.6-1.3); POTASSIUM - SERUM 4.2 mmol/L (3.5-5.1); PROTEIN - SERUM 7.2 g/dL (6.4-8.2)
--- NOTE | 2019-12-14 09:30 | NUR ---
TO OR VIA BED
--- NOTE | 2019-12-14 20:15 | NUR ---
REC'D FROM OFF-GOING NURSE, CARE ASSUMED. INITIAL ASSESSMENT COMPLETED AND RECORDED PER FLOW SHEET. LEFT ARTERIAL LINE LEVELED & ZEROED WITH DIACROTIC NOTCHED WAVE FORM NOTED. DRSG TO RIGHT SIDE OF NECK, SITE OF R CAROTID WITH JADEN DRAIN, COMPRESSED WITH SANGUINOUS DRAINAGE, R & L PIVS PATENT WITH ZINACEF TO LEFT AND PLASMALYTE @ 30 TO RIGHT. CHRISTENSEN IN SITU WITH CLEAR YELLOW URINE DRAINING. PPP. DENIES NEEDS.
--- NOTE | 2019-12-14 23:30 | NUR ---
LYING QUIETLY, EYES CLOSED. HAD GIVEN ULTRAM FOR DISCOMFORT. BLOOD PRESSURE REMAINS WITHIN PARAMETERS. O2 SAT UPPER 90S. WILL CONT TO MONITOR.
[2019-12-15] VITALS (23 sets, daily range): BP systolic 98–149; BP diastolic 50–80
--- NOTE | 2019-12-15 03:45 | NUR ---
NO CHANGES IN INITIAL ASSESSMENT. VSS. I&Os COMPLETE. DENIES NEEDS. WILL CONT WITH CURRENT PLAN OF CARE
[2019-12-15 06:02] LABS: BASOPHILS 0.1 % (0-2); EOSINOPHILS 0.7 % (0-7); HEMATOCRIT 39.5 % (42.0-54.0); HEMOGLOBIN 13.1 g/dL (13.5-17.5); IMMATURE GRANULOCYTES 0.1 % (0-5); LYMPHOCYTES 19.7 % (15-50); MCH 30.3 pg (26.0-34.0); MCHC 33.2 g/dL (31.0-37.0); MCV 91.2 fL (80.0-100.0); MEAN PLATELET VOLUME 9.6 fL (7.4-10.4); NEUTROPHILS 65.4 % (40-80); PLATELET COUNT 173 10x3/uL (130-400); RBC 4.33 10x6/uL (4.20-6.10); RDW 13.4 % (11.5-14.5)
[2019-12-15 06:03] LABS: WBC 7.2 10x3/uL (4.8-10.8)
[2019-12-15 06:59] LABS: ALBUMIN 3.4 g/dL (3.4-5.0); ALKALINE PHOSPHATASE 54 U/L (30-120); ALT (SGPT) 47 U/L (10-68); BILIRUBIN - TOTAL 0.78 mg/dL (0.2-1.3); CALC OSMOLALITY 277 mosm/kg (275-300); CALCIUM 8.2 mg/dL (8.5-10.1); CARBON DIOXIDE 26.3 mmol/L (21.0-32.0); CHLORIDE - SERUM 105 mmol/L (98-107); CREATININE - SERUM 0.9 mg/dL (0.6-1.3); GLUCOSE 125 mg/dL (74-106); PROTEIN - SERUM 6.6 g/dL (6.4-8.2); SODIUM 138 mmol/L (136-145); UREA NITROGEN 14 mg/dL (7-18); eGFR NON AFRICAN AMERICAN 87 mL/min (90-120)
--- NOTE | 2019-12-15 10:31 | OP ---
PATIENT NAME: VIDYA ANTONY MEDICAL RECORD: [id number] :44 LOCATION:[facility] ADMISSION DATE:12/10/19 SURGEON: BILL CARLTON MD DATE OF OPERATION: 12/14/2019 SURGEON: Bill Carlton MD PROCEDURE PERFORMED: Right carotid endarterectomy. 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 POSTOPERATIVE DIAGNOSIS: Right carotid stenosis with right hemispheric TIA. ANESTHESIA: General endotracheal anesthesia. ESTIMATED BLOOD LOSS: 10 cc. COMPLICATIONS: None. SPECIMENS: Plaque. CONDITION: Stable. DISPOSITION: CV-ICU. OPERATIVE FINDINGS: 1. Irregular calcified plaque with a discrete 3 cm ulcerated plaque in the proximal internal carotid artery that is the likely source of the patient's TIA. The plaque feathered well distally and a CorMatrix patch was used for closure. 2. Neurologically intact to CV ICU. 3. Bradycardia after induction with low dose dopamine, weaned off prior to transfer to ICU. OPERATIVE INDICATION: Right carotid stenosis and TIA. PROCEDURE IN DETAIL: The patient was brought to the operative suite. General anesthesia was obtained, the patient prepped and draped. An oblique incision was made in the right neck, taken down to the common carotid, which was dissected out and freed from the vagus nerve and encircled with a loop. The external carotid and thyroid branch were encircled with vessel loops. Internal carotid was dissected out distally. The hypoglossal nerve was held out of harm's way and heparin was given. After the heparin had circulated, backbleeding in the internal carotid was controlled with a bulldog clamp. Backbleeding external carotid arteries were controlled with vessel loops. Inflow was controlled with a vascular clamp. After 2 minutes, the EEG and cerebral oximetry were unchanged and therefore the arteriotomy was begun in the common carotid artery taken out through the region of dense calcification of the proximal internal carotid artery and into a relatively normal region of the internal carotid. The plaque was divided in the common carotid artery with an eversion endarterectomy of the external carotid and the plaque feathered well distally. Thorough irrigation was undertaken. All bits of loose debris were removed. Distally, the plaque had feathered well and was smooth. The patch was fashioned to the appropriate size and sutured along the edge of the arteriotomy. Prior to completing the anastomosis, backbleeding was allowed from all 3 major vessels and thorough irrigation of the endarterectomy bed was again performed. OPERATIVE REPORT [id number] VIDYA ANTONY Anastomosis completed, flow restored first to the external carotid and then to the internal carotid. Interrupted patch sutures were used for hemostasis as the patient had previously been on antiplatelet therapy for recent coronary intervention. Drain was placed through a separate stab wound. Protamine was given. The hemostasis was ensured and irrigation ensued. Neck was closed in 3 layers including Dermabond on the skin. The patient neurologically intact to ICU. TRANSINT:[id number] Voice Confirmation ID: [id number] DOCUMENT ID: [id number] BILL CARLTON MD at 1031 CC: CHAKA DEL REAL and NIKOS HENDERSON MD [id number] DICTATION DATE: 12/14/19 1504 PET TRAINER: 12/15/19 0215 ADM IN [facility] [address] [id number]
--- NOTE | 2019-12-15 16:13 | NUR ---
0730-ASSISTED TO BEDSIDE CHAIR-EL= STRONG-NOTED HEARING DEFICIT--R NECK SOFT TO TOUCH AND DRG REMAINS IN PLACE-NO SPEECH OR SWALLOW DIFFICULTY- 0830-BREAKFEST TRAY TAKEN 1030-DR CARLTON AT BEDSIDE-DISCUSSED WITH PT AND -CURRENT FINDINGS AND PLAN OF TREATMENT-ORDERS RECIEVED AND NOTED-R FOREARM IV D/C'D WITH TIP INTACT-R JPRATT TO NECK D/C'D PER PROTOCOL-L RADIAL TYSON D/C'D ORDERED-CHRISTENSEN CATH D/C'D WITH TIP INTACT-TOLERATED WELL -L CVL SALINE LOCKED PT REMAINS UP IN CHAIR 1400-DR DENG AT BEDSIDE AND REVIEWED DISCHARGE AND HOME MEDICINE LIST WITH PT AND -MINIMAL UNDERSTANDING FROM PT-GOOD UNDERSTANDING FROM --L CVL D/C PER PROTOCOL WITH TIP INTACT -DRG APPLIED--REVIEWED PRIMARILY WITH -PT CONT WITH HEARING DEFICIT--MEDICINE-WOUND CARE FOLLOW UP APPOINTMENTS-DISCHARGED HOME VIA WHEELCHAIR
--- NOTE | 2019-12-16 09:11 | MORECARE ---
CASE MANAGEMENT DISCHARGE SUMMARY PATIENT: VIDYA ANTONY UNIT: [id number] ADM DATE: 12/10/19 AGE: 79 : 42 SEX: M ROOM/BED: D[facility] AUTHOR: DENY,DOC PHYSICIAN: REFERRING PHYSICIAN: CHAKA DEL REAL MD DATE OF SERVICE: 12/16/19 Discharge Plan Patient Name: VIDYA ANTONY Facility: [facility]:[place] : 1940 Planned Disposition: Home Anticipated Discharge Date: Discharge Date: 12/15/2019 Expected LOS: Initial Reviewer: [email or web address] Initial Review Date: 12/08/2019 Generated: 12/16/19 10:11 am Comments DCP- Discharge Planning Updated by [id number]: Aixa Mcfarland on 12/16/19 8:[address] LATE ENTRY 12/15/19 Patient Name: VIDYA ANTONY Admission Status: ER Accout number: [id number] Admission Date: 12-10-2019 : 1940 Admission Diagnosis:FACIAL WEAKNESS Attending: CHAKA DEL REAL Current LOS: 5 Anticipated DC Date: Planned Disposition: Home Primary Insurance: OUT OF STATE MEDICARE HMO Discharge Planning Comments: CM met with patient to complete initial dc planning assessment. CM educated patient on the CM role and verbal consent given by patient to complete assessment. Patient lives at home with family. Patient is independent. At discharge patient plans to return home and feels this is a safe discharge. CM discussed availability of home health, rehab services, and medical equipment. Patient will have family to transport home. Patient denied known discharge needs at this time. CM will continue to follow and will assist as needed with dc plans/needs. D/C IMM SIGNED 12/15/19 @ 1520 Injection Molder: Aixa Mcfarland DCPIA - Discharge Planning Initial Assessment Updated by [email or web address]: Aixa Mcfarland on 12/16/19 9:07 am * Is the patient Alert and Oriented? Yes * How many steps to enter\exit or inside your home? * PCP JEFFREY * [facility]acy [facility] * Preadmission Environment Home with Family * ADLs Independent * List name and contact numbers for known caregivers / representatives who currently or will assist patient after discharge: KRISTYN ANTONY - SPOUSE - [phone], * Verbal permission to speak to the caregivers and representatives has been obtained from the patient. Yes * Community resources currently utilized None * Additional services required to return to the preadmission environment? No * Can the patient safely return to the preadmission environment? Yes * Has this patient been hospitalized within the prior 30 days at any hospital? No Coverage Notice Reviewer: [id number] Megha Merchant Notice Issued Date-Time: 12/10/2019 17:57 Notice Type: Medicare Outpatient Observation Notice Notice Delivered To: Patient Relationship to Patient: Library Technology Instructor Name: Delivery Method: HAND - Hand Delivered Luna Days: Prior Verbal Notification: Recipient Understood Notice: Yes Recipient Signature: Yes Med Rec Note Co-signed by Attending: Coverage Notice Comment: Reviewer: [id number] - Aixa Mcfarland Notice Issued Date-Time: 12/15/2019 15:20 Notice Type: IM Discharge Notice Notice Delivered To: Patient Relationship to Patient: Self Library Technology Instructor Name: Delivery Method: HAND - Hand Delivered Luna Days: Prior Verbal Notification: Recipient Understood Notice: Yes Recipient Signature: Yes Med Rec Note Co-signed by Attending: Coverage Notice Comment: Patient Name: VIDYA ANTONY Page [phone] at 0911 All edits/amendments must be made on the electronic document DICTATION DATE: 12/16/19910 IRON CUTTER: KYRA 12/16/19910 RPT#: [id number] DC DATE:12/15/19 STATUS: DIS IN [facility] [address] [place] [address] END OF REPORT
--- NOTE | 2019-12-17 20:26 | MORECARE ---
CASE MANAGEMENT DISCHARGE SUMMARY PATIENT: VIDYA ANTONY UNIT: [id number] ADM DATE: 12/10/19 AGE: 79 : 42 SEX: M ROOM/BED: D[facility] AUTHOR: DENY,DOC PHYSICIAN: REFERRING PHYSICIAN: CHAKA DEL REAL MD DATE OF SERVICE: 12/17/19 Discharge Plan Patient Name: VIDYA ANTONY Facility: [facility]:[place] : 1940 Planned Disposition: Home Anticipated Discharge Date: Discharge Date: 12/15/2019 Expected LOS: Initial Reviewer: [email or web address] Initial Review Date: 12/08/2019 Generated: 12/17/19 9:25 pm Comments DCP- Discharge Planning Updated by [email or web address]: Aixa Mcfarland on 12/16/19 8:[address] LATE ENTRY 12/15/19 Patient Name: VIDYA ANTONY Admission Status: ER Accout number: [id number] Admission Date: 12-10-2019 : 1940 Admission Diagnosis:FACIAL WEAKNESS Attending: CHAKA DEL REAL Current LOS: 5 Anticipated DC Date: Planned Disposition: Home Primary Insurance: OUT OF STATE MEDICARE HMO Discharge Planning Comments: CM met with patient to complete initial dc planning assessment. CM educated patient on the CM role and verbal consent given by patient to complete assessment. Patient lives at home with family. Patient is independent. At discharge patient plans to return home and feels this is a safe discharge. CM discussed availability of home health, rehab services, and medical equipment. Patient will have family to transport home. Patient denied known discharge needs at this time. CM will continue to follow and will assist as needed with dc plans/needs. D/C IMM SIGNED 12/15/19 @ 1520 Medical Records Secretary: Aixa Mcfarland DCPIA - Discharge Planning Initial Assessment Updated by [email or web address]: Aixa Mcfarland on 12/16/19 9:07 am * Is the patient Alert and Oriented? Yes * How many steps to enter\exit or inside your home? * PCP JEFFREY * [facility] * Preadmission Environment Home with Family * ADLs Independent * List name and contact numbers for known caregivers / representatives who currently or will assist patient after discharge: KRISTYN ANTONY - SPOUSE - [phone], * Verbal permission to speak to the caregivers and representatives has been obtained from the patient. Yes * Community resources currently utilized None * Additional services required to return to the preadmission environment? No * Can the patient safely return to the preadmission environment? Yes * Has this patient been hospitalized within the prior 30 days at any hospital? No Coverage Notice Reviewer: [id number] Megha Merchant Notice Issued Date-Time: 12/10/2019 17:57 Notice Type: Medicare Outpatient Observation Notice Notice Delivered To: Patient Relationship to Patient: Rn Patient Services Name: Delivery Method: HAND - Hand Delivered Luna Days: Prior Verbal Notification: Recipient Understood Notice: Yes Recipient Signature: Yes Med Rec Note Co-signed by Attending: Coverage Notice Comment: Reviewer: [id number] - Aixa Mcfarland Notice Issued Date-Time: 12/15/2019 15:20 Notice Type: IM Discharge Notice Notice Delivered To: Patient Relationship to Patient: Self Rn Patient Services Name: Delivery Method: HAND - Hand Delivered Luna Days: Prior Verbal Notification: Recipient Understood Notice: Yes Recipient Signature: Yes Med Rec Note Co-signed by Attending: Coverage Notice Comment: Last DP export: 12/16/19 8:11 a Patient Name: VIDYA ANTONY Page [phone] at 2025 All edits/amendments must be made on the electronic document DICTATION DATE: 12/17/192024 NAVAL DESIGNER: KYRA 12/17/192024 RPT#: [id number] DC DATE:12/15/19 STATUS: DIS IN [facility] [address] [place] [address] END OF REPORT
== END 2019-12-15 16:47 | disposition home or self-care (01) | DRG 37 ==
LOC: D.ER 18:48 → D.MS 21:30 → OBSVTIME 21:30 → D.MS 21:30 → D.ER 21:53 → D.MS 12-10 19:00 → D.CVICU 12-14 14:30
PROVIDERS: Emergency Medicine; Family Medicine; Internal Medicine Cardiovascular Disease; Thoracic Surgery (Cardiothoracic Vascular Surgery); ADMIT Family Medicine; ATTEND Family Medicine
PROC: 03UK0JZ Supplement Right Internal Carotid Artery with Synthetic Substitute, Open Approach (ICD-10-PCS; 2019-12-14)
PROC: 03CK0ZZ Extirpation of Matter from Right Internal Carotid Artery, Open Approach (ICD-10-PCS; principal; 2019-12-14 10:45)
DX: I65.21 Occlusion and stenosis of right carotid artery (principal); R40.2214 Coma scale, best verbal response, none, 24 hours or more after hospital admission; I10 Essential (primary) hypertension; I25.119 Atherosclerotic heart disease of native coronary artery with unspecified angina pectoris; K59.09 Other constipation; R00.1 Bradycardia, unspecified; E11.9 Type 2 diabetes mellitus without complications; Z86.73 Personal history of transient ischemic attack (TIA), and cerebral infarction without residual deficits; R40.2134 Coma scale, eyes open, to sound, 24 hours or more after hospital admission; R40.2364 Coma scale, best motor response, obeys commands, 24 hours or more after hospital admission

== ENCOUNTER 2019-12-22 23:07 | Emergency (ER) | payer MEDICARE ==
[~2019-12-22] VITALS: Ht 175.3 cm; Wt 83.6 kg
[2019-12-22 23:11] VITALS: Ht 175.3 cm; Wt 83.6 kg
[2019-12-22 23:31] LABS: BASOPHILS 0.5 % (0-2); EOSINOPHILS 4.6 % (0-7); HEMATOCRIT 42.1 % (42.0-54.0); HEMOGLOBIN 14.1 g/dL (13.5-17.5); IMMATURE GRANULOCYTES 0.2 % (0-5); LYMPHOCYTES 44.4 % (15-50); MCH 30.7 pg (26.0-34.0); MCHC 33.5 g/dL (31.0-37.0); MCV 91.5 fL (80.0-100.0); MEAN PLATELET VOLUME 9.5 fL (7.4-10.4); MONOCYTES 12.6 % (2-11); NEUTROPHILS 37.7 % (40-80); RDW 13.4 % (11.5-14.5); WBC 6.1 10x3/uL (4.8-10.8)
[2019-12-22 23:32] LABS: PLATELET COUNT 228 10x3/uL (130-400)
[2019-12-22 23:39] LABS: CALC OSMOLALITY 281 mosm/kg (275-300); CALCIUM 9.2 mg/dL (8.5-10.1); CARBON DIOXIDE 30.7 mmol/L (21.0-32.0); CHLORIDE - SERUM 104 mmol/L (98-107); CREATININE - SERUM 0.9 mg/dL (0.6-1.3); GLUCOSE 107 mg/dL (74-106); POTASSIUM - SERUM 4.1 mmol/L (3.5-5.1); SODIUM 140 mmol/L (136-145); UREA NITROGEN 21 mg/dL (7-18); eGFR NON AFRICAN AMERICAN 87 mL/min (90-120)
[2019-12-22 23:45] LABS: ALBUMIN 4.1 g/dL (3.4-5.0); ALKALINE PHOSPHATASE 82 U/L (30-120); ALT (SGPT) 94 U/L (10-68); PROTEIN - SERUM 7.6 g/dL (6.4-8.2)
[2019-12-23 00:25] VITALS: BP 158/69
== END 2019-12-23 00:25 | disposition home or self-care (01) ==
LOC: D.ER 23:07
PROVIDERS: Emergency Medicine
DX: M50.30 Other cervical disc degeneration, unspecified cervical region (principal); Z98.890 Other specified postprocedural states; Z86.73 Personal history of transient ischemic attack (TIA), and cerebral infarction without residual deficits; R53.83 Other fatigue; R20.0 Anesthesia of skin

== ENCOUNTER 2020-09-25 23:56 | Emergency (ER) | payer MEDICARE ==
[~2020-09-25] VITALS: Ht 175.3 cm; Wt 85.5 kg
[2020-09-26 00:02] VITALS: Ht 175.3 cm; Wt 85.5 kg
[2020-09-26 00:41] LABS: BASOPHILS 0.2 % (0-2); EOSINOPHILS 2.2 % (0-7); HEMOGLOBIN 13.8 g/dL (13.5-17.5); LYMPHOCYTE ABS# 0.43 10x3/uL (1.32-3.57); LYMPHOCYTES 7.9 % (15-50); MCH 30.4 pg (26.0-34.0); MCHC 32.9 g/dL (31.0-37.0); MCV 92.5 fL (80.0-100.0); MEAN PLATELET VOLUME 9.7 fL (7.4-10.4); MONOCYTES 9.4 % (2-11); NEUTROPHIL ABS# 4.36 10x3/uL (1.78-5.38); NEUTROPHILS 80.3 % (40-80); RBC 4.54 10x6/uL (4.20-6.10); RDW 13.3 % (11.5-14.5); WBC 5.4 10x3/uL (4.8-10.8)
[2020-09-26 00:46] LABS: PLATELET COUNT 182 10x3/uL (130-400)
[2020-09-26 00:51] LABS: APTT 22.5 SECONDS (22.8-39.4); CALC OSMOLALITY 288 mosm/kg (275-300); CALCIUM 9.1 mg/dL (8.5-10.1); CARBON DIOXIDE 29.8 mmol/L (21.0-32.0); CHLORIDE - SERUM 105 mmol/L (98-107); INR 1.09 (0.85-1.17); POTASSIUM - SERUM 4.3 mmol/L (3.5-5.1); SODIUM 141 mmol/L (136-145); UREA NITROGEN 23 mg/dL (7-18); eGFR NON AFRICAN AMERICAN 77 mL/min (90-120)
[2020-09-26 00:53] LABS: GLUCOSE 163 mg/dL (74-106)
[2020-09-26 01:27] LABS: ALBUMIN 3.9 g/dL (3.4-5.0); ALKALINE PHOSPHATASE 76 U/L (30-120); ALT (SGPT) 58 U/L (10-68); BILIRUBIN - TOTAL 0.52 mg/dL (0.2-1.3); CKMB 1.3 U/L (0.0-3.6); CREATINE KINASE 146 UL (21-232); MAGNESIUM - SERUM 2.1 mg/dL (1.8-2.4); PROTEIN - SERUM 7.5 g/dL (6.4-8.2); TROPONIN-I < 0.017 ng/mL (0.000-0.060)
[2020-09-26] MEDS ORDERED: ZOFRAN ODT4 MG/UDTAB PO (01:35)
[2020-09-26 02:54] VITALS: BP 134/71
== END 2020-09-26 02:55 | disposition home or self-care (01) ==
LOC: D.ER 23:56
PROVIDERS: Family Medicine
DX: R11.2 Nausea with vomiting, unspecified (principal)

== ENCOUNTER 2020-09-27 23:46 | Emergency (ER) | payer MEDICARE ==
[~2020-09-27] VITALS: Ht 175.3 cm; Wt 86.4 kg
[~2020-09-27 23:46] MED LIST changes: +ZOFRAN ODT4 MG/UDTAB PO
[2020-09-27 23:50] VITALS: Ht 175.3 cm; Wt 86.4 kg
[2020-09-28 00:18] LABS: BASOPHILS 0 % (0-2); EOSINOPHILS 2.3 % (0-7); IMMATURE GRANULOCYTES 0.3 % (0-5); LYMPHOCYTE ABS# 0.91 10x3/uL (1.32-3.57); LYMPHOCYTES 23.2 % (15-50); MCH 30.4 pg (26.0-34.0); MCHC 33.3 g/dL (31.0-37.0); MCV 91.1 fL (80.0-100.0); MEAN PLATELET VOLUME 9.4 fL (7.4-10.4); MONOCYTES 18.9 % (2-11); NEUTROPHIL ABS# 2.17 10x3/uL (1.78-5.38); NEUTROPHILS 55.3 % (40-80); PLATELET COUNT 181 10x3/uL (130-400); RBC 4.61 10x6/uL (4.20-6.10); RDW 13.3 % (11.5-14.5)
[2020-09-28 00:19] LABS: WBC 3.9 10x3/uL (4.8-10.8)
[2020-09-28 00:27] LABS: CALC OSMOLALITY 283 mosm/kg (275-300); CALCIUM 8.8 mg/dL (8.5-10.1); CARBON DIOXIDE 27.2 mmol/L (21.0-32.0); CHLORIDE - SERUM 101 mmol/L (98-107); GLUCOSE 131 mg/dL (74-106); SODIUM 140 mmol/L (136-145); UREA NITROGEN 22 mg/dL (7-18); eGFR NON AFRICAN AMERICAN 77 mL/min (90-120)
[2020-09-28 00:32] LABS: ALBUMIN 3.9 g/dL (3.4-5.0); ALKALINE PHOSPHATASE 70 U/L (30-120); ALT (SGPT) 61 U/L (10-68); AMYLASE - SERUM 16 U/L (25-115); BILIRUBIN - TOTAL 0.56 mg/dL (0.2-1.3); PROTEIN - SERUM 7.9 g/dL (6.4-8.2)
[2020-09-28 00:36] LABS: LIPASE 42 U/L (73-393); POTASSIUM - SERUM 3.5 mmol/L (3.5-5.1)
[2020-09-28 02:11] VITALS: BP 130/80
== END 2020-09-28 02:09 | disposition home or self-care (01) ==
LOC: D.ER 23:46
PROVIDERS: Student in an Organized Health Care Education/Training Program
DX: R19.7 Diarrhea, unspecified (principal)